=== PATIENT | female | born 1955 | race Caucasian/White ===

== ENCOUNTER 2018-03-28 01:16 | Observation (INO) | payer SELFPAY ==
[2018-03-28] VITALS (24 sets, daily range): BP systolic 81–131; BP diastolic 41–70; PULSE 52–89; RESP 11–20; TEMP 36.4–37.6; O2SAT 91–100; BMI 22.1; BMI 22.4
--- NOTE | 2018-03-28 01:20 | ED.RN ---
RN CALLED FOR EKG, NO OLD EKGS IN MUSE
--- NOTE | 2018-03-28 01:28 | EKG12_ITS ---
Test Reason : CP Blood Pressure : / mmHG Vent. Rate : 055 BPM Atrial Rate : 055 BPM P-R Int : 148 ms QRS Dur : 076 ms QT Int : 414 ms P-R-T Axes : 076 062 056 degrees QTc Int : 396 ms Sinus bradycardia Otherwise normal ECG Confirmed by ABNER BRADLEY, JOY ([id number]), script editor NELI YANG ([id number]) on 03/31/2018 2:40:30 PM Referred By: JD Confirmed By:JOY LEVINE MD
--- NOTE | 2018-03-28 01:28 | RAD_ITS ---
STUDY: X-RAY CHEST REASON FOR EXAM: Female, 62 years old. Chest pain and shortness of breath TECHNIQUE: PA and lateral views of the chest. COMPARISON: None. FINDINGS: Lungs are hyperexpanded. There is mild prominence of interstitial markings throughout both lungs. No confluent airspace opacity. No pleural effusion or pneumothorax. Normal size heart. Normal mediastinum and matteo. Normal visualized pulmonary arteries. Normal visualized aortic arch and descending thoracic aorta. Normal visualized thoracic spine. Normal visualized ribs, clavicles, and shoulders. There is no demonstrated abnormality of the visualized soft tissue structures of the upper abdomen. RAD/Chest PA and Lateral IMPRESSION: Chronic obstructive and interstitial change with no evidence of acute cardiopulmonary disease. Electronically Signed: Brian Reynoso MD at 1:57 EDT Tel , Service support ,
--- NOTE | 2018-03-28 01:30 | ED.DCSUM_ITS ---
- ER Visit Summary Date of Service: 03/28/18 Chief Complaint: [] Chest pain History of Present Illness: The patient is a 62 F complaining of chest pain started 30 minutes ago while knitting at rest. Is a continuous tightness substernal and heaviness. She feels it between her shoulder blades as well. Current severity is moderate. Worsened by nothing. Associated with one episode of emesis and diaphoresis and shortness of breath. She took 2 Aleve earlier 1 hour ago when she has some discomfort in her shoulder. She is never had a history of heart problems. No previous stress test or heart cath. Her cardiovascular risk factors only include smoking. No PE or dissection risk factors. Physical Examination: [] Vital signs reviewed General: Well-nourished well-developed Head: Normocephalic atraumatic Eyes: Pupils equal round and reactive to light extraocular movements intact ENT: TMs clear no hemotympanum no trauma Neck: Nontender full range of motion Cardiovascular: Regular rate rhythm no murmurs normal S1-S2 Respiratory: No distress clear to auscultation bilaterally chest nontender Abdomen: Soft nontender nondistended normal bowel sounds no masses Back: Nontender no CVA tenderness Extremities: Nontender active range of motion ?4 extremities no trauma Skin: Normal color no trauma Neuro alert oriented cranial nerves II through XII intact normal strength sensation reflexes Test Results: [] Emergency Department Course and Treatment: [] EKG shows sinus rhythm at a rate of 55. No STEMI pattern. Positive motion artifact. No T wave inversions or ST depressions. Chest x-ray and lab work obtained. Patient given oral aspirin and sublingual nitroglycerin. Lab work shows nothing acute. Troponin negative. CT of the chest showed pancreatic head calcifications otherwise nothing acute. No PE or dissection. Chest x-ray just showed COPD findings. I did the CT of her chest as she had pain going into her back. I wanted to rule out a dissection. One nitroglycerin dropped her blood pressure to 90/60 but it rebounded back to 107/62. She did not want any thing further for her discomfort. She wanted to avoid narcotics. At this time she will be admitted. I added on a lipase however I have a low suspicion for pancreatitis. She has no pain in the epigastric region. I did this due to the CAT scan findings. Treatment Plan: [] Disposition: [] Impression: [] Chest pain This note was generated with [employer] dictation software. It may contain incorrect words, spelling, and punctuation that were not noted in review of the chart prior to signing ED Disposition - Plan for ED Patient: Chief Complaint: Chest Pain Referrals: NOT,DEFINED [NON-STAFF] -
[2018-03-28] MEDS: Aspirin 81 MG TAB.CHEW 324 MG PO (01:35)
[2018-03-28 01:49] LABS: Absolute Lymphocyte Count 3.72 X10^3/ul (0.83-4.51); Absolute Neutrophil Count 4.7 X10^3/uL (2.0-7.7); Basophil# 0.05 X10^3/uL; Basophil% 0.3 % (0-1); Differential Indicated SCAN CRITERIA MET; Eosinophil# 0.28 X10^3/uL; Hemoglobin 14.2 g/dl (12.0-15.0); Lymphocyte # 3.72 X10^3/ul (4.0); Lymphocyte % 39.6 % (19-41); Mean Corpuscular Hgb 31.6 pg (27.0-32.0); Mean Corpuscular Volume 96.2 fL (81-99); Mean Platelet Vol. 11.1 fl (6.2-12.0); Monocyte% 7.4 % (0-10); Neutrophil # 4.66 X10^3/uL (2.7-7.7); Neutrophil % 49.6 % (47-70); POSITIVE COUNT NO; POSITIVE DIFFERENTIAL NO; POSITIVE MORPHOLOGY YES; Platelet Count 214 K/mm3 (150-450); RBC Distribution Width CV 13.2 % (11.6-14.6); RBC Distribution Width SD 45.4 fl (35.1-43.9); Red Blood Count 4.52 M/mm3 (4.2-5.4); White Blood Count 9.5 K/mm3 (4.4-11.0)
[2018-03-28 01:52] LABS: Anion Gap 5 (5-15); BUN 18 mg/dL (7-18); BUN/Creat Ratio 25.1 RATIO (10-20); Chloride 105 mmol/L (98-107); Creatinine, Serum 0.72 mg/dL (0.55-1.02); EST Glomerular Filtration Rate 87 mL/min (>60); Est Glom Filt Rate - Afr Amer 106 mL/min (>60); Estimated Creatinine Clearance 60.35 ml/min; Glucose 92 mg/dL (74-106); Potassium 4.2 mmol/L (3.5-5.1); Sodium Level 138 mmol/L (136-145)
--- NOTE | 2018-03-28 02:21 | CT_ITS ---
STUDY: CTA CHEST REASON FOR EXAM: Female, 62 years old. Chest pain and shortness of breath RADIATION DOSAGE (If Supplied By Facility): CTDIvol = ( 6.47 ) mGy, DLP = ( 176.52 ) mGycm TECHNIQUE: The examination was performed with the intravenous administration of 75ML ml of Isovue 370 contrast material. Post-processing of the angiographic images was performed, with multiplanar reformation and 3D reconstruction. Individualized dose optimization techniques were used for this CT. COMPARISON: None. FINDINGS: Normal enhancement of the main pulmonary artery and right and left pulmonary arteries. Normal enhancement of the bilateral peripheral pulmonary arteries. There is no demonstrated pulmonary embolism. Thoracic aorta demonstrates no aneurysmal dilatation or dissection. Normal heart and pericardium. Shotty mediastinal and hilar lymph nodes. Normal visualized trachea and bronchi. The lungs are well expanded. Moderate diffuse emphysematous change of the lungs. No confluent airspace infiltrate. Symmetric biapical pleural parenchymal scarring. No pleural effusion or pneumothorax. Normal chest wall structures. Normal osseous structures. Visualized portions of the upper abdomen demonstrate calcific deposition within the head of the pancreas. CT/CTA Chest W/WO Contrast IMPRESSION: 1. No evidence of acute pulmonary embolism. 2. Moderate diffuse atheromatous change of the lungs without evidence of acute airspace infiltrate. 3. Sequelae of chronic pancreatitis in the head of the pancreas. Electronically Signed: Brian Reynoso MD at 3:57 EDT Tel , Service support ,
[2018-03-28 02:27] LABS: Anisocytosis RARE; Macrocytosis RARE; Platelet Estimate ADEQUATE (ADEQ)
[2018-03-28] MEDS: 0.9% Normal Saline 1,000 ML 1000 ML IV (02:52)
--- NOTE | 2018-03-28 04:02 | PCM.HP.STD ---
Problem List (1) Unstable angina pectoris Status: Acute (2) COPD (chronic obstructive pulmonary disease) Status: Acute History of Present Illness Date of Admission: 03/28/18 Chief Complaint: Chest pain The patient is a 62 year old F with a significant history of COPD who presents with continuous substernal chest pain 30 minutes before arrival at emergency department. Her chest pain started when she was resting and knitting. She described her chest pain as stabbing and heavy. Initially her chest pain was 10 out of 10 but at the time of her evaluation her chest pain had decreased to 8 out of 10. When the chest pain started and while at home patient had an episode of vomiting. Associated with her symptoms is profuse diaphoresis. Her chest pain radiated to her inter scapula area. At home she took some Advil which did not give her any real relief. Reportedly patient passed out while at the triage at the emergency department. At emergency department patient received nitroglycerin and aspirin. She reported no relieve with nitroglycerin. However her blood pressure decreased into the 90s after nitroglycerin administration. Upon admission and while in her inpatient room patient had an episode of vomiting which she attributed to IV contrast she had received for CT scan. After this episode of throwing up her chest pain decreased in severity from 8 to a 6. EKG at emergency department showed mild bradycardia without ST changes. Per patient she has not had any chest pain like this before. She had not had any stress test or cardiac cath in the past. Her symptoms started about 7 hours after eating. Past Medical History Medical History: Medical History (Last Updated 03/28/18 @ 05:42 by Oscar Clark MD) COPD (chronic obstructive pulmonary disease) J44.9 Allergies No Known Allergies Allergy (Verified 03/28/18 01:19) Home Medications: Ambulatory Orders Medication Instructions Recorded Albuterol Inhaler [Ventolin Hfa 1 puff INHALATION Q4H PRN PRN 03/28/18 (SP)] Surgical History: no surgical history Lives: Spouse/ Significant Other Smoking Status: Current every day smoker Tobacco Use: Cigarettes Alcohol: None - *Family History Maternal History Items: - - Patient was adopted and she does not know her family history. Paternal History Items: - - Patient was adopted and she does not know her family history. Review of Systems Constitutional: Denies: Chills, Fever, Weight Change HEENT: Denies: Difficulty Hearing, Head Aches, Sinus Congestion, Sinus Drainage, Visual Changes Cardiovascular: Reports: Chest Pain, Syncope. Denies: Edema, Light Headedness Respiratory: Reports: Shortness of Breath. Denies: Hemoptysis, Shortness of breath at rest Gastrointestinal: Reports: Vomiting. Denies: Abdominal Pain, Nausea Genitourinary: Denies: Dysuria, Frequency, Hematuria Musculoskeletal: Denies: Joint Pain, Joint Tenderness Skin: Denies: Rash, Wounds Neurological: Denies: Numbness, Tingling, Focal weakness Psychiatric: Denies: Anxiety, Depression, Homicidal Ideations, Suicidal Ideations Hematologic/ Lymphatic: Denies: Easy Bruising, Easy Bleeding VTE Information - Inpt Only VTE Present on Admission: No VTE Mechan Device Prophylaxis: None VTE Pharm Prophylaxis ordered?: Yes Patient Problems: Active and Suspected Problems (Last Updated 03/28/18 @ 05:42 by Oscar Clark MD) Unstable angina pectoris (Acute) COPD (chronic obstructive pulmonary disease) (Acute) - Physical Exam General: Alert, Oriented x3, Cooperative HEENT: Atraumatic, PERRLA, EOMI, Normocephalic Neck: Supple, No JVD, Negative Carotid Bruits Lungs: Clear to auscultation, Normal air movement Cardiovascular: No murmurs, Bradycardic Abdomen: Bowel Sounds Present, Soft, Non Tender Extremities: No edema, Capillary Refill Less than 3 Seconds Skin: No rashes, No breakdown Musculoskeletal: No Tenderness to Palpation of Joints or Extremities Neurological: Cranial nerves II-XII grossly intact Psych/Mental Status: Normal Affect, Appropriate Vital Signs Temp Pulse Resp BP Pulse Ox 97.8 F 52 L 13 107/62 100 03/28/18 01:17 03/28/18 03:00 03/28/18 03:00 03/28/18 03:00 03/28/18 03:00 Oxygen Flow Rate (L/min) 2 Oxygen Delivery Method Nasal Cannula Weight: 53.1 kg Body Mass Index (BMI) 22.1 Laboratory Tests Past 24 Hrs 03/28/18 03/28/18 01:30 01:30 WBC 9.5 RBC 4.52 Hgb 14.2 Hct 43.0 MCV 96.2 MCH 31.6 MCHC 33.0 RDW 13.2 RDW Differential 45.4 H Plt Count 214 MPV 11.1 Immature Gran % (Auto) 0.400 Neut % (Auto) 49.6 Lymph % (Auto) 39.6 [place] % (Auto) 7.4 Eos % (Auto) 3.0 Baso % (Auto) 0.3 Absolute Neuts (auto) 4.7 Absolute Lymphs (auto) 3.72 Total Counted Not Reportable Diff Path Review May foll Platelet Estimate ADEQUATE Anisocytosis RARE Macrocytosis RARE Sodium 138 Potassium 4.2 Chloride 105 Carbon Dioxide 28.0 Anion Gap 5 BUN 18 Creatinine 0.72 Estim Creat Clear Calc 60.35 Est GFR (MDRD) Af Amer 106 Est GFR (MDRD) Non-Af 87 BUN/Creatinine Ratio 25.1 H Glucose 92 Calcium 9.0 Troponin I < 0.015 Assessment/Plan All Active Problems (Last Updated 03/28/18 @ 05:42 by Oscar Clark MD) Unstable angina pectoris (Acute) COPD (chronic obstructive pulmonary disease) (Acute) The patient is a 62 year old F who was adopted and does not know her family history but with with a significant personal history of COPD; and tobacco abuse; who presents with first time chest pain not relieved with nitroglycerin; vomiting; diaphoresis and syncope consistent with likely unstable angina. Chest pain Admit to a monitored bed on PCU CXR independently reviewed confirms no acute cardiopulmonary disease. It shows hyperinflation consistent with a known history of COPD. EKG independently reviewed confirms sinus bradycardia. Heart score is 4 (history is highly suspicious; age 62 years; 1-2 risk factors). Importantly patient was adopted and she does not know her family history. With a positive family history her heart score will indeed not change. ASA 81 mg p.o. daily Sublingual nitro nitroglycerin not ordered because of hypotension with previous administration. Low-dose morphine ordered for chest pain. 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 We will order chemical stress test with nuclear imaging. Patient is not actively wheezing. Stress test as above in the AM if the cardiac enzymes are negative IV fluid continue since patient received IV dye for CTA Chest. CTA chest did not show PE. Lipid panel ordered. Abnormal CT scan finding. CT scans shows pancreatic calcifications. Lipase pending. DVT prophylaxis ordered. Subcutaneous heparin Code Visit OBSV E&M: [id number] Initial observation care L3
--- NOTE | 2018-03-28 04:38 | EKG12_ITS ---
Test Reason : ADM CP Blood Pressure : / mmHG Vent. Rate : 053 BPM Atrial Rate : 053 BPM P-R Int : 166 ms QRS Dur : 074 ms QT Int : 426 ms P-R-T Axes : 075 077 060 degrees QTc Int : 399 ms Sinus bradycardia Otherwise normal ECG When compared with ECG of 28-MAR-2018 01:19, MANUAL COMPARISON REQUIRED, DATA IS UNCONFIRMED Confirmed by ABNER BRADLEY, JOY ([id number]), editorial intern NELI YANG ([id number]) on 04/02/2018 3:42:37 PM Referred By: VELASQUEZ Confirmed By:JOY LEVINE MD
[2018-03-28 05:16] LABS: Cholesterol 160 mg/dL (200); High Density Lipoprotein 50 mg/dL; Lipase 217 U/L (73-393); Triglycerides 128 mg/dL; Very Low Density Lipoprotein 26 mg/dL (5-40)
[2018-03-28] MEDS: Atorvastatin Calcium 80 MG Tablet PO (05:32)
[2018-03-28] MEDS: Morphine 2 MG/ML Syringe 0.5 MG IV (05:32)
[2018-03-28] MEDS: 0.9% NaCl Peripheral Flush Adult/Peds IV (05:32)
[2018-03-28] MEDS: 0.9% Normal Saline 1,000 ML 100 ML IV (05:32)
[2018-03-28] MEDS: Ondansetron 4 MG/2 ML Vial IV (05:33)
--- NOTE | 2018-03-28 09:29 | EKG12_ITS ---
Test Reason : Blood Pressure : / mmHG Vent. Rate : 056 BPM Atrial Rate : 056 BPM P-R Int : 146 ms QRS Dur : 076 ms QT Int : 434 ms P-R-T Axes : 073 071 062 degrees QTc Int : 418 ms Sinus bradycardia Otherwise normal ECG When compared with ECG of 28-MAR-2018 05:22, MANUAL COMPARISON REQUIRED, DATA IS UNCONFIRMED Confirmed by ABNER BRADLEY, JOY ([id number]), editorial cartoonist NELI YANG ([id number]) on 04/02/2018 3:41:19 PM Referred By: JEN Confirmed By:JOY LEVINE MD
--- NOTE | 2018-03-28 09:44 | ECHOD_ITS ---
Reason For Study: CP Procedure This was a 2D Doppler, Color Flow transthoracic echocardiogram. The study was technically difficult. Exam performed portable in patient room. Left Ventricle Normal LV size. Left ventricular systolic function is normal. The estimated ejection fraction is 60 %. No evidence for diastolic dysfunction. No regional wall motion abnormalities noted. Right Ventricle Normal RV size. Normal systolic function. Atria Normal left atrium. Normal right atrium. Mitral Valve Normal mitral valve. Tricuspid Valve Normal tricuspid valve. Aortic Valve Normal aortic valve. Trisinus/trileaflet aortic valve. Pulmonic Valve Normal pulmonic valve. Great Vessels Normal aortic root. The pulmonary artery is normal size. Normal inferior vena cava. Pericardium/Pleural No pericardial effusion. MMode/2D Measurements & Calculations LVIDd: 3.9 cm IVSd: 0.74 cm LVOT diam: 2.0 cm LVIDs: 2.5 cm LVPWd: 0.72 cm LVOT area: 3.1 cm2 RVDd: 3.1 cm FS: 35.4 % Ao root diam: 2.7 cm LAV(MOD-sp4): 18.4 ml LVAd ap4: 21.5 cm2 LA dimension: 2.5 cm EDV(MOD-sp4): 59.6 ml EDV(sp4-el): 61.8 ml LVAs ap4: 12.3 cm2 ESV(MOD-sp4): 24.9 ml ESV(sp4-el): 25.9 ml EF(MOD-sp4): 58.2 % EF(sp4-el): 58.1 % SV(MOD-sp4): 34.7 ml SV(sp4-el): 35.9 ml LA A4 area: 9.9 cm2 RA A4 area: 9.0 cm2 Time Measurements MV dec time: 0.22 sec Doppler Measurements & Calculations MV E max adair: 76.2 cm/sec Lat Peak E' [place]: 11.3 cm/sec Med Peak E' [place]: 10.4 cm/sec MV A max adair: 66.1 cm/sec E/E' lat: 6.8 E/E' med: 7.3 MV E/A: 1.2 MV V2 max: 93.1 cm/sec MV P1/2t max adair: 92.5 cm/sec Ao V2 max: 147.7 cm/sec MV max P.5 mmHg MV P1/2t: 95.6 msec Ao max P.7 mmHg MV V2 mean: 52.6 cm/sec MV dec slope: 283.4 cm/sec2 Ao V2 mean: 94.8 cm/sec MV mean P.3 mmHg MVA(P1/2t): 2.3 cm2 Ao mean P.2 mmHg MV V2 VTI: 28.8 cm Ao V2 VTI: 31.6 cm MVA(VTI): 2.4 cm2 CABRERA(I,D): 2.2 cm2 CABRERA(V,D): 2.3 cm2 LV V1 max: 113.3 cm/sec SV(LVOT): 70.5 ml PA V2 max: 96.3 cm/sec LV V1 max P.1 mmHg LV V1 mean P.3 mmHg LV V1 mean: 69.9 cm/sec LV V1 VTI: 23.0 cm Interpretation Summary Normal LV size. Left ventricular systolic function is normal. The estimated ejection fraction is 60 %. No evidence for diastolic dysfunction. Structurally normal valves. Ordering Physician: Neptali Molina Performed By: Eric Aponte RCS
[2018-03-28] MEDS: Albuterol 2.5 MG/3 ML VIAL.NEB. INHALATION (09:47)
[2018-03-28 09:51] LABS: Absolute Lymphocyte Count 1.89 X10^3/ul (0.83-4.51); Absolute Neutrophil Count 5.1 X10^3/uL (2.0-7.7); Basophil# 0.03 X10^3/uL; Basophil% 0.4 % (0-1); Eosinophil# 0.24 X10^3/uL; Eosinophils% 3.1 % (0-5); Hematocrit 38.8 % (37-47); Hemoglobin 12.7 g/dl (12.0-15.0); Lymphocyte # 1.89 X10^3/ul (4.0); Lymphocyte % 24.1 % (19-41); Mean Corp Hgb Conc 32.7 g/gl (32-36); Mean Corpuscular Hgb 31.1 pg (27.0-32.0); Mean Corpuscular Volume 95.1 fL (81-99); Monocyte# 0.52 X10^3/uL; Monocyte% 6.6 % (0-10); Neutrophil # 5.14 X10^3/uL (2.7-7.7); Neutrophil % 65.7 % (47-70); POSITIVE COUNT NO; POSITIVE DIFFERENTIAL NO; POSITIVE MORPHOLOGY NO; Platelet Count 255 K/mm3 (150-450); RBC Distribution Width CV 13.1 % (11.6-14.6); RBC Distribution Width SD 45.6 fl (35.1-43.9); Red Blood Count 4.08 M/mm3 (4.2-5.4); White Blood Count 7.8 K/mm3 (4.4-11.0)
--- NOTE | 2018-03-28 09:52 | PCM.PN.HOSP ---
Patient Problems: Active and Suspected Problems (Last Updated 03/28/18 @ 05:42 by Oscar Clark MD) Unstable angina pectoris (Acute) COPD (chronic obstructive pulmonary disease) (Acute) Subjective: Nurse called for patient having chest pain and hypotension. 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 Vitals/I&O's: Vital Signs Temp Pulse Resp BP Pulse Ox 97.6 F L 68 19 H 88/49 L 92 03/28/18 09:20 03/28/18 09:20 03/28/18 09:20 03/28/18 09:20 03/28/18 09:20 Oxygen Flow Rate (L/min) 2 Oxygen Delivery Method Room Air Weight: 119 lb 0.794 oz Body Mass Index (BMI) 22.4 Intake and Output for Last 24 Hours 03/26/18 03/27/18 03/28/18 23:59 23:59 23:59 Intake Total 1000 / 1000 Balance 1000 / 1000 General: Alert, Oriented x3, Cooperative, - - Thin built HEENT: Atraumatic, PERRLA, EOMI, Normocephalic Neck: Supple, No JVD, Negative Carotid Bruits Lungs: No rhonchi, No wheeze, Diminished Cardiovascular: Regular rate, Regular Rhythm, Normal S1, Normal S2, No murmurs Abdomen: Bowel Sounds Present, Soft, Non Tender, Non-Distended Extremities: No edema, Capillary Refill Less than 3 Seconds Skin: No rashes, No breakdown Musculoskeletal: No Tenderness to Palpation of Joints or Extremities Neurological: Cranial nerves II-XII grossly intact Psych/Mental Status: Normal Affect, Appropriate Laboratory Results 03/28/18 01:30: WBC 9.5, RBC 4.52, Hgb 14.2, Hct 43.0, MCV 96.2, MCH 31.6, MCHC 33.0, RDW 13.2, RDW Differential 45.4 H, Plt Count 214, MPV 11.1, Immature Gran % (Auto) 0.400, Neut % (Auto) 49.6, Lymph % (Auto) 39.6, [place] % (Auto) 7.4, Eos % (Auto) 3.0, Baso % (Auto) 0.3, Absolute Neuts (auto) 4.7, Absolute Lymphs (auto) 3.72, Total Counted Not Reportable, Diff Path Review October, Platelet Estimate ADEQUATE, Anisocytosis RARE, Macrocytosis RARE 03/28/18 01:30: Sodium 138, Potassium 4.2, Chloride 105, Carbon Dioxide 28.0, Anion Gap 5, BUN 18, Creatinine 0.72, Estim Creat Clear Calc 60.35, Est GFR (MDRD) Af Amer 106, Est GFR (MDRD) Non-Af 87, BUN/Creatinine Ratio 25.1 H, Glucose 92, Calcium 9.0, Troponin I < 0.015 03/28/18 04:04: Triglycerides 128, Cholesterol 160, LDL Cholesterol 84, VLDL Cholesterol 26, HDL Cholesterol 50, Lipase 217 03/28/18 05:02: Troponin I < 0.015 03/28/18 08:10: Troponin I < 0.015 03/28/18 08:10: Sodium Pending, Potassium Pending, Chloride Pending, Carbon Dioxide Pending, Anion Gap Pending, BUN Pending, Creatinine Pending, Est GFR (MDRD) Af Amer Pending, Est GFR (MDRD) Non-Af Pending, BUN/Creatinine Ratio Pending, Glucose Pending, Calcium Pending, Magnesium Pending 03/28/18 08:10: WBC 7.8, RBC 4.08 L, Hgb 12.7, Hct 38.8, MCV 95.1, MCH 31.1, MCHC 32.7, RDW 13.1, RDW Differential 45.6 H, Plt Count 255, MPV 10.0, Immature Gran % (Auto) 0.100, Neut % (Auto) 65.7, Lymph % (Auto) 24.1, [place] % (Auto) 6.6, Eos % (Auto) 3.1, Baso % (Auto) 0.4, Absolute Neuts (auto) 5.1, Absolute Lymphs (auto) 1.89, Total Counted Not Reportable Current Medications Albuterol Sulfate (Ventolin Aerosols) 2.5 mg INHALATION Q4H PRN PRN PRN Reason: WHEEZING Last Admin: 03/28/18 09:47 Dose: 2.5 mg Aspirin (Ecotrin) 81 mg PO DAILY@0800 KATHY Atorvastatin Calcium (Lipitor) 80 mg PO QHS ON LICENSE OF [facility] Last Admin: 03/28/18 05:32 Dose: 80 mg Carvedilol (Coreg) 3.125 mg PO BID ON LICENSE OF [facility] Heparin Sodium (Porcine) (Heparin Na) 5,000 unit SC Q8 ON LICENSE OF [facility] Last Admin: 03/28/18 06:16 Dose: Not Given Sodium Chloride () 1,000 mls @ 100 mls/hr IV .Q10H KATHY Stop: 03/28/18 14:37 Last Admin: 03/28/18 05:32 Dose: 100 mls/hr Sodium Chloride () 1,000 mls @ 999 mls/hr IV .Q1H1M ONE Stop: 03/28/18 10:48 Influenza Virus Vaccine Quadrival (Fluarix/Fluzone) 0.5 ml IM .ONCE ONE Stop: 03/28/18 10:01 Magnesium Hydroxide (Milk Of Magnesia) 30 ml PO DAILY PRN PRN Reason: Constipation Morphine Sulfate () 0.5 mg IV Q1H PRN PRN PRN Reason: PAIN Last Admin: 03/28/18 05:32 Dose: 0.5 mg Ondansetron HCl (Zofran) 4 mg IV Q6H PRN PRN PRN Reason: n/v Last Admin: 03/28/18 05:33 Dose: 4 mg Sodium Chloride () 5 - 30 ml IV UD PRN PRN Reason: SALINE FLUSH Last Admin: 03/28/18 05:32 Dose: 10 ml Medical Necessity - Tobacco Use Smoking Status: Current every day smoker Tobacco Use: Cigarettes Assessment/Plan All Active Problems (Last Updated 03/28/18 @ 05:42 by Oscar Clark MD) Unstable angina pectoris (Acute) COPD (chronic obstructive pulmonary disease) (Acute) 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 Prior history of chest pain/discomfort or cardiac evaluation. Patient is adopted so does not know her family history. Patient also had collapse while moving to ER but was held before fall and laid down. Patient also dropped blood pressure in ED after nitro sublingual. EKG reviewed. All EKGs show sinus bradycardia, no significant ST-T changes suggestive of ischemia. Troponins are normal. Stress test was canceled. IV fluid normal saline 1 L bolus ordered. 2D echo ordered. I called Dr. herrera and requested for consult for further evaluation and management.
[2018-03-28 09:57] LABS: Anion Gap 7 (5-15); BUN 12 mg/dL (7-18); BUN/Creat Ratio 24.1 RATIO (10-20); Chloride 109 mmol/L (98-107); EST Glomerular Filtration Rate 133 mL/min (>60); Est Glom Filt Rate - Afr Amer 161 mL/min (>60); Glucose 86 mg/dL (74-106); Magnesium 1.8 mg/dL (1.6-2.6); Potassium 4.3 mmol/L (3.5-5.1); Sodium Level 142 mmol/L (136-145)
--- NOTE | 2018-03-28 09:59 | PN_ITS ---
Patient Problems: Active and Suspected Problems (Last Updated 03/28/18 @ 05:42 by Oscar Clark MD) Unstable angina pectoris (Acute) COPD (chronic obstructive pulmonary disease) (Acute) Subjective: Nurse called for patient having chest pain and hypotension. 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 Vitals/I&O's: Vital Signs Temp Pulse Resp BP Pulse Ox 97.6 F L 68 19 H 88/49 L 92 03/28/18 09:20 03/28/18 09:20 03/28/18 09:20 03/28/18 09:20 03/28/18 09:20 Oxygen Flow Rate (L/min) 2 Oxygen Delivery Method Room Air Weight: 119 lb 0.794 oz Body Mass Index (BMI) 22.4 Intake and Output for Last 24 Hours 03/26/18 03/27/18 03/28/18 23:59 23:59 23:59 Intake Total 1000 / 1000 Balance 1000 / 1000 General: Alert, Oriented x3, Cooperative, - - Thin built HEENT: Atraumatic, PERRLA, EOMI, Normocephalic Neck: Supple, No JVD, Negative Carotid Bruits Lungs: No rhonchi, No wheeze, Diminished Cardiovascular: Regular rate, Regular Rhythm, Normal S1, Normal S2, No murmurs Abdomen: Bowel Sounds Present, Soft, Non Tender, Non-Distended Extremities: No edema, Capillary Refill Less than 3 Seconds Skin: No rashes, No breakdown Musculoskeletal: No Tenderness to Palpation of Joints or Extremities Neurological: Cranial nerves II-XII grossly intact Psych/Mental Status: Normal Affect, Appropriate Laboratory Results 03/28/18 01:30: WBC 9.5, RBC 4.52, Hgb 14.2, Hct 43.0, MCV 96.2, MCH 31.6, MCHC 33.0, RDW 13.2, RDW Differential 45.4 H, Plt Count 214, MPV 11.1, Immature Gran % (Auto) 0.400, Neut % (Auto) 49.6, Lymph % (Auto) 39.6, [place] % (Auto) 7.4, Eos % (Auto) 3.0, Baso % (Auto) 0.3, Absolute Neuts (auto) 4.7, Absolute Lymphs (auto) 3.72, Total Counted Not Reportable, Diff Path Review October, Platelet Estimate ADEQUATE, Anisocytosis RARE, Macrocytosis RARE 03/28/18 01:30: Sodium 138, Potassium 4.2, Chloride 105, Carbon Dioxide 28.0, Anion Gap 5, BUN 18, Creatinine 0.72, Estim Creat Clear Calc 60.35, Est GFR (MDRD) Af Amer 106, Est GFR (MDRD) Non-Af 87, BUN/Creatinine Ratio 25.1 H, Glucose 92, Calcium 9.0, Troponin I < 0.015 03/28/18 04:04: Triglycerides 128, Cholesterol 160, LDL Cholesterol 84, VLDL Cholesterol 26, HDL Cholesterol 50, Lipase 217 03/28/18 05:02: Troponin I < 0.015 03/28/18 08:10: Troponin I < 0.015 03/28/18 08:10: Sodium Pending, Potassium Pending, Chloride Pending, Carbon Dioxide Pending, Anion Gap Pending, BUN Pending, Creatinine Pending, Est GFR (MDRD) Af Amer Pending, Est GFR (MDRD) Non-Af Pending, BUN/Creatinine Ratio Pending, Glucose Pending, Calcium Pending, Magnesium Pending 03/28/18 08:10: WBC 7.8, RBC 4.08 L, Hgb 12.7, Hct 38.8, MCV 95.1, MCH 31.1, MCHC 32.7, RDW 13.1, RDW Differential 45.6 H, Plt Count 255, MPV 10.0, Immature Gran % (Auto) 0.100, Neut % (Auto) 65.7, Lymph % (Auto) 24.1, [place] % (Auto) 6.6, Eos % (Auto) 3.1, Baso % (Auto) 0.4, Absolute Neuts (auto) 5.1, Absolute Lymphs (auto) 1.89, Total Counted Not Reportable Current Medications Albuterol Sulfate (Ventolin Aerosols) 2.5 mg INHALATION Q4H PRN PRN PRN Reason: WHEEZING Last Admin: 03/28/18 09:47 Dose: 2.5 mg Aspirin (Ecotrin) 81 mg PO DAILY@0800 KATHY Atorvastatin Calcium (Lipitor) 80 mg PO QHS [facility] Last Admin: 03/28/18 05:32 Dose: 80 mg Carvedilol (Coreg) 3.125 mg PO BID [facility] Heparin Sodium (Porcine) (Heparin Na) 5,000 unit SC Q8 [facility] Last Admin: 03/28/18 06:16 Dose: Not Given Sodium Chloride () 1,000 mls @ 100 mls/hr IV .Q10H KATHY Stop: 03/28/18 14:37 Last Admin: 03/28/18 05:32 Dose: 100 mls/hr Sodium Chloride () 1,000 mls @ 999 mls/hr IV .Q1H1M ONE Stop: 03/28/18 10:48 Influenza Virus Vaccine Quadrival (Fluarix/Fluzone) 0.5 ml IM .ONCE ONE Stop: 03/28/18 10:01 Magnesium Hydroxide (Milk Of Magnesia) 30 ml PO DAILY PRN PRN Reason: Constipation Morphine Sulfate () 0.5 mg IV Q1H PRN PRN PRN Reason: PAIN Last Admin: 03/28/18 05:32 Dose: 0.5 mg Ondansetron HCl (Zofran) 4 mg IV Q6H PRN PRN PRN Reason: n/v Last Admin: 03/28/18 05:33 Dose: 4 mg Sodium Chloride () 5 - 30 ml IV UD PRN PRN Reason: SALINE FLUSH Last Admin: 03/28/18 05:32 Dose: 10 ml Medical Necessity - Tobacco Use Smoking Status: Current every day smoker Tobacco Use: Cigarettes Assessment/Plan All Active Problems (Last Updated 03/28/18 @ 05:42 by Oscar Clark MD) Unstable angina pectoris (Acute) COPD (chronic obstructive pulmonary disease) (Acute) 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 Prior history of chest pain/discomfort or cardiac evaluation. Patient is adopted so does not know her family history. Patient also had collapse while moving to ER but was held before fall and laid down. Patient also dropped blood pressure in ED after nitro sublingual. EKG reviewed. All EKGs show sinus bradycardia, no significant ST-T changes suggestive of ischemia. Troponins are normal. Stress test was canceled. IV fluid normal saline 1 L bolus ordered. 2D echo ordered. I called Dr. herrera and requested for consult for further evaluation and management.
--- NOTE | 2018-03-28 10:40 | CASEMGMT ---
SW met w/pt in room as pt is self pay. Pt states she did speak w/the financial department this morning, she completed a Medicaid application. SW gave pt information [employer], [employer] and [employer]. SW also spoke w/pt about smoking, pt states she is feeling better since she had a breathing treatment this morning. She states she still smokes and knows she should not. Pt states she quit for 9 months, but then her and she started smoking again from the stress. SW inquired if she is interested in counseling. Pt states not really, does not think it would help. Pt states she used to go to with her to support him, but did not find it very helpful. SW asked if she has ever called the [place] [employer] line, pt has and has used the patch in the past. She also tried Chantix, but it gave her nightmares. SW offered support and encouragement to pt. No further needs anticipated, pt home at discharge. 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
--- NOTE | 2018-03-28 10:56 | PCM.CONS.C ---
Reason for Consult Date of Consultation: 03/28/18 Reason for Consultation: Chest pain. History of Present Illness: The patient is a 62 year old F with no previous cardiac history who presented to the emergency room complaining of chest discomfort. She says she was asleep when she started having this chest discomfort initially sharp and then it felt like an elephant sitting on her chest and going to her back. She presented to the emergency room she was given sublingual glycerin and also underwent a CAT scan of the chest which did not demonstrate any evidence of aortic dissection or aortic pathology. She has continued to have the chest discomfort despite normal cardiac troponin enzymes. She denies any dizziness or diaphoresis she did have an episode of near syncope when she was in the emergency room. This morning she was noted to be hypotensive on the telemetry floor and continued to complain of chest discomfort prompting a cardiology consultation. She currently says that the pain is much improved. [] Past Medical History Allergies/Adverse Reactions: Allergies No Known Allergies Allergy (Verified 03/28/18 01:19) Home Medications: Ambulatory Orders Medication Instructions Recorded Albuterol Inhaler [Ventolin Hfa 1 puff INHALATION Q4H PRN PRN 03/28/18 (SP)] Surgical History: no surgical history - *Family History Maternal History Items: - - Patient was adopted and she does not know her family history. Paternal History Items: - - Patient was adopted and she does not know her family history. Lives: Spouse/ Significant Other Smoking Status: Current every day smoker Tobacco Use: Cigarettes Alcohol: None Drugs: None Review of Systems - Review of Systems General: Denies: Fever, Night Sweats, Fatigue Cardiovascular: Reports: Chest Discomfort, Chest Discomfort at Rest. Denies: Shortness of Breath, Orthopnea, PND, Peripheral Edema, Palpitations, Lightheadedness, Dizziness, Near Syncope, Syncope Respiratory: Denies: Cough, Sputum Production, Hemoptysis Gastrointestinal: Denies: Hematemesis, Hematochezia, Melena Genitourinary: Denies: Dysuria, Hematuria Skin: Denies: Rash Subjectve: Pleasant lady in no apparent distress at this time Objective: Vital Signs Temp Pulse Resp BP Pulse Ox 97.6 F L 68 19 H 88/49 L 92 03/28/18 09:20 03/28/18 09:20 03/28/18 09:20 03/28/18 09:20 03/28/18 09:20 Oxygen Flow Rate (L/min) 2 Oxygen Delivery Method Room Air Weight: 119 lb 0.794 oz Body Mass Index (BMI) 22.4 Intake and Output for Last 24 Hours 03/26/18 03/27/18 03/28/18 23:59 23:59 23:59 Intake Total 1000 / 1000 Balance 1000 / 1000 General: Awake, Alert, Oriented x 3 HEENT: PERRL, EOMI, Sclera Non Icteric Neck: Supple, Good ROM, No Lymph Node Enlargement Lungs: Clear to auscultation Cardiovascular: Regular Rhythm, Normal S1, Normal S2, No Murmurs, No Rubs, No Gallops Vascular: No Carotid Bruits, Normal Femoral Pulses, Normal Radial Pulses, Normal Dorsalis Pedal Pulse, Normal Posterior Tibial Pulses Abdomen: Bowel Sounds Present, Soft, Non Tender, No HSM, No Organomegaly Extremities: No Cyanosis, No Clubbing, No edema Neurological: No Focal Motor or Sensory Deficit 03/28/18 01:30: WBC 9.5, RBC 4.52, Hgb 14.2, Hct 43.0, MCV 96.2, MCH 31.6, MCHC 33.0, RDW 13.2, RDW Differential 45.4 H, Plt Count 214, MPV 11.1, Immature Gran % (Auto) 0.400, Neut % (Auto) 49.6, Lymph % (Auto) 39.6, Bell % (Auto) 7.4, Eos % (Auto) 3.0, Baso % (Auto) 0.3, Absolute Neuts (auto) 4.7, Total Counted Not Reportable 03/28/18 01:30: Sodium 138, Potassium 4.2, Chloride 105, Carbon Dioxide 28.0, Anion Gap 5, BUN 18, Creatinine 0.72, Est GFR (MDRD) Af Amer 106, Est GFR (MDRD) Non-Af 87, BUN/Creatinine Ratio 25.1 H, Glucose 92, Calcium 9.0, Troponin I < 0.015 03/28/18 04:04: Triglycerides 128, Cholesterol 160, LDL Cholesterol 84, VLDL Cholesterol 26, HDL Cholesterol 50 03/28/18 05:02: Troponin I < 0.015 03/28/18 08:10: Troponin I < 0.015 03/28/18 08:10: Sodium 142, Potassium 4.3, Chloride 109 H, Carbon Dioxide 26.0, Anion Gap 7, BUN 12, Creatinine 0.50 L, Est GFR (MDRD) Af Amer 161, Est GFR (MDRD) Non-Af 133, BUN/Creatinine Ratio 24.1 H, Glucose 86, Calcium 8.0 L, Magnesium 1.8 03/28/18 08:10: WBC 7.8, RBC 4.08 L, Hgb 12.7, Hct 38.8, MCV 95.1, MCH 31.1, MCHC 32.7, RDW 13.1, RDW Differential 45.6 H, Plt Count 255, MPV 10.0, Immature Gran % (Auto) 0.100, Neut % (Auto) 65.7, Lymph % (Auto) 24.1, Bell % (Auto) 6.6, Eos % (Auto) 3.1, Baso % (Auto) 0.4, Absolute Neuts (auto) 5.1, Total Counted Not Reportable Rhythm: EKG: ECHO: Stress Test: Cardiac Cath: PCI: CT Surgery: Holter monitor: EPS: PPM: CXR: Chest CT Scan: Assessment/Plan 1. Chest pain. Patient presents with chest pain with some features which are atypical for coronary artery disease. Her electrocardiogram demonstrates normal sinus rhythm with no acute changes, cardiac troponin enzymes are normal and CAT scan of her chest is normal. She however continues to complain of significant chest discomfort and with her hypotension there is a concern that this could be primary cardiac or coronary in etiology. After discussion with her it was felt that she should undergo a cardiac catheterization rather than stress testing. The risk benefits alternatives have been explained to her she understands and agrees to proceed. Depending on the findings further recommendations will be made. Thank you for allowing me to participate in the care of your patient. Please don't hesitate to call if any issues arise Addendum. Cardiac catheterization today performed demonstrated the following: Normal left main coronary artery. Left anterior descending artery with no significant disease. Left circumflex artery with mild disease. Dominant right coronary artery with mid segment 40-50% stenosis. Preserved left ventricular ejection fraction. Based on the above angiographic findings I would recommend that the patient to be discharged for outpatient follow-up.
--- NOTE | 2018-03-28 11:00 | CON.PCM_ITS ---
Reason for Consult Date of Consultation: 03/28/18 Reason for Consultation: Chest pain. History of Present Illness: The patient is a 62 year old F with no previous cardiac history who presented to the emergency room complaining of chest discomfort. She says she was asleep when she started having this chest discomfort initially sharp and then it felt like an elephant sitting on her chest and going to her back. She presented to the emergency room she was given sublingual glycerin and also underwent a CAT scan of the chest which did not demonstrate any evidence of aortic dissection or aortic pathology. She has continued to have the chest discomfort despite normal cardiac troponin enzymes. She denies any dizziness or diaphoresis she did have an episode of near syncope when she was in the emergency room. This morning she was noted to be hypotensive on the telemetry floor and continued to complain of chest discomfort prompting a cardiology consultation. She currently says that the pain is much improved. [] Past Medical History Allergies/Adverse Reactions: Allergies No Known Allergies Allergy (Verified 03/28/18 01:19) Home Medications: Ambulatory Orders Medication Instructions Recorded Albuterol Inhaler [Ventolin Hfa 1 puff INHALATION Q4H PRN PRN 03/28/18 (SP)] Surgical History: no surgical history - *Family History Maternal History Items: - - Patient was adopted and she does not know her family history. Paternal History Items: - - Patient was adopted and she does not know her family history. Lives: Spouse/ Significant Other Smoking Status: Current every day smoker Tobacco Use: Cigarettes Alcohol: None Drugs: None Review of Systems - Review of Systems General: Denies: Fever, Night Sweats, Fatigue Cardiovascular: Reports: Chest Discomfort, Chest Discomfort at Rest. Denies: Shortness of Breath, Orthopnea, PND, Peripheral Edema, Palpitations, Lightheadedness, Dizziness, Near Syncope, Syncope Respiratory: Denies: Cough, Sputum Production, Hemoptysis Gastrointestinal: Denies: Hematemesis, Hematochezia, Melena Genitourinary: Denies: Dysuria, Hematuria Skin: Denies: Rash Subjectve: Pleasant lady in no apparent distress at this time Objective: Vital Signs Temp Pulse Resp BP Pulse Ox 97.6 F L 68 19 H 88/49 L 92 03/28/18 09:20 03/28/18 09:20 03/28/18 09:20 03/28/18 09:20 03/28/18 09:20 Oxygen Flow Rate (L/min) 2 Oxygen Delivery Method Room Air Weight: 119 lb 0.794 oz Body Mass Index (BMI) 22.4 Intake and Output for Last 24 Hours 03/26/18 03/27/18 03/28/18 23:59 23:59 23:59 Intake Total 1000 / 1000 Balance 1000 / 1000 General: Awake, Alert, Oriented x 3 HEENT: PERRL, EOMI, Sclera Non Icteric Neck: Supple, Good ROM, No Lymph Node Enlargement Lungs: Clear to auscultation Cardiovascular: Regular Rhythm, Normal S1, Normal S2, No Murmurs, No Rubs, No Gallops Vascular: No Carotid Bruits, Normal Femoral Pulses, Normal Radial Pulses, Normal Dorsalis Pedal Pulse, Normal Posterior Tibial Pulses Abdomen: Bowel Sounds Present, Soft, Non Tender, No HSM, No Organomegaly Extremities: No Cyanosis, No Clubbing, No edema Neurological: No Focal Motor or Sensory Deficit 03/28/18 01:30: WBC 9.5, RBC 4.52, Hgb 14.2, Hct 43.0, MCV 96.2, MCH 31.6, MCHC 33.0, RDW 13.2, RDW Differential 45.4 H, Plt Count 214, MPV 11.1, Immature Gran % (Auto) 0.400, Neut % (Auto) 49.6, Lymph % (Auto) 39.6, [place] % (Auto) 7.4, Eos % (Auto) 3.0, Baso % (Auto) 0.3, Absolute Neuts (auto) 4.7, Total Counted Not Reportable 03/28/18 01:30: Sodium 138, Potassium 4.2, Chloride 105, Carbon Dioxide 28.0, Anion Gap 5, BUN 18, Creatinine 0.72, Est GFR (MDRD) Af Amer 106, Est GFR (MDRD) Non-Af 87, BUN/Creatinine Ratio 25.1 H, Glucose 92, Calcium 9.0, Troponin I < 0.015 03/28/18 04:04: Triglycerides 128, Cholesterol 160, LDL Cholesterol 84, VLDL Cholesterol 26, HDL Cholesterol 50 03/28/18 05:02: Troponin I < 0.015 03/28/18 08:10: Troponin I < 0.015 03/28/18 08:10: Sodium 142, Potassium 4.3, Chloride 109 H, Carbon Dioxide 26.0, Anion Gap 7, BUN 12, Creatinine 0.50 L, Est GFR (MDRD) Af Amer 161, Est GFR (MDRD) Non-Af 133, BUN/Creatinine Ratio 24.1 H, Glucose 86, Calcium 8.0 L, Magnesium 1.8 03/28/18 08:10: WBC 7.8, RBC 4.08 L, Hgb 12.7, Hct 38.8, MCV 95.1, MCH 31.1, MCHC 32.7, RDW 13.1, RDW Differential 45.6 H, Plt Count 255, MPV 10.0, Immature Gran % (Auto) 0.100, Neut % (Auto) 65.7, Lymph % (Auto) 24.1, [place] % (Auto) 6.6, Eos % (Auto) 3.1, Baso % (Auto) 0.4, Absolute Neuts (auto) 5.1, Total Counted Not Reportable Rhythm: EKG: ECHO: Stress Test: Cardiac Cath: PCI: CT Surgery: Holter monitor: EPS: PPM: CXR: Chest CT Scan: Assessment/Plan * 1. Chest pain. * * Patient presents with chest pain with some features which are atypical for coronary artery disease. Her electrocardiogram demonstrates normal sinus rhythm with no acute changes, cardiac troponin enzymes are normal and CAT scan of her chest is normal. She however continues to complain of significant chest discomfort and with her hypotension there is a concern that this could be primary cardiac or coronary in etiology. After discussion with her it was felt that she should undergo a cardiac catheterization rather than stress testing. The risk benefits alternatives have been explained to her she unders tands and agrees to proceed. Depending on the findings further recommendations will be made. * * Thank you for allowing me to participate in the care of your patient. Please don't hesitate to call if any issues arise * * * Addendum. Cardiac catheterization today performed demonstrated the following: Normal left main coronary artery. Left anterior descending artery with no significant disease. Left circumflex artery with mild disease. Dominant right coronary artery with mid segment 40-50% stenosis. Preserved left ventricular ejection fraction. Based on the above angiographic findings I would recommend that the patient to be discharged for outpatient follow-up.
[2018-03-28] MEDS: 0.9% Normal Saline 1,000 ML 999 ML IV (11:02)
[2018-03-28] MEDS: Clopidogrel Bisulfate 300 MG Tablet PO (11:38)
--- NOTE | 2018-03-28 15:07 | CHAPLAIN ---
Type of Pastoral Visit _x__ Initial Visit ___ Follow-up Visit ___ On-call Visit ___ General Patient Visit ___ Spiritual Assessment ___ Family Conference ___ Bereavement ___ Rapid Response ___ Code Blue ___ Other (describe below) Pastoral Care Referral From _x__ Patient ___ Family ___ Nurse ___ Physician ___ Client Resolution Specialist ___ Office Messenger Helper ___ Other (describe below) Sacrament/Intervention _x__ Active listening ___ Anointing ___ Pentecostal ___ Bereavement ___ Communion ___ Chloé exploration ___ ___ Life review _x__ Prayer ___ Reconciliation ___ Sacrament of Sick _x__ Supportive presence ___ Wedding ___ Other (describe below) Pastoral Comments patient came in through the night into ED; pt keeps talking about having to wait before eating and admits to getting crabby with people because of hungry feelings; pt is waiting to go to [employer] and does want prayer support
[2018-03-28 15:09] LABS: Pathologist Review Reviewed
--- NOTE | 2018-03-28 16:16 | DCINST_ITS ---
- Discharge Diagnoses Current Active Problems: Current Active and Chronic Problems (Last Updated 03/28/18 @ 05:42 by Oscar Clark MD) Unstable angina pectoris (Acute) COPD (chronic obstructive pulmonary disease) (Acute) You will use the following diet at home:: Cardiac Discharge Activity: May not drive while taking narcotic pain medications. Call your doctor if you observe: Fever of 101 or Higher, Shortness of breath, Chest pain, Increased palpitations (irregular heartbeat), Calf discomfort Allergies/Adverse Reactions: Allergies No Known Allergies Allergy (Verified 03/28/18 01:19) Medications to take at Discharge Albuterol Inhaler [Ventolin Hfa] 1 puff INHALATION Q4H PRN PRN 03/28/18 Atorvastatin Calcium [Lipitor] 20 mg PO QHS #30 tab 03/28/18 Budesonide/Formoterol 80-4.5 [Symbicort 80-4.5 Mcg Inhaler] 2 puff INHALATION BID #1 inhaler 03/28/18 The following prescriptions were given: Atorvastatin Calcium [Lipitor] 20 mg PO QHS #30 tab Budesonide/Formoterol 80-4.5 [Symbicort 80-4.5 Mcg Inhaler] 2 puff INHALATION BID #1 inhaler Primary Care Physician: NOT,DEFINED [NON-STAFF] - Please follow up with your Primary Care Physician in: IN 2 WEEKS Test Results: Test results from this visit will be discussed in further detail at your follow- up appointment, if applicable. Please Follow Up With: Rony Gardner MD When: in 4 weeks for advanced COPD
--- NOTE | 2018-03-28 16:16 | PCM.DC.SUM ---
Discharge Date and Diagnosis - Problem List Patient Problems: Active and Suspected Problems (Last Updated 03/28/18 @ 05:42 by Oscar Clark MD) Unstable angina pectoris (Acute) COPD (chronic obstructive pulmonary disease) (Acute) Date of Admission: 03/28/18 Date of Discharge: 03/28/18 - Primary Discharge Diagnosis Active and Suspected Problems (Last Updated 03/28/18 @ 05:42 by Oscar Clark MD) Unstable angina pectoris (Acute) COPD (chronic obstructive pulmonary disease) (Acute) Atypical chest pain with mild coronary artery disease in the RCA Hospital Course and Treatment Imaging Results: 03/28/18 09:44 Echo Complete [ECHO] Routine Summary of Care Provided: The patient is a 62 year old F was admitted facility practice specialist with chest discomfort/pain started at 11 PM last night, at rest with radiation to interscapular region associated with mild shortness of breath on top of chronic COPD shortness of breath, diaphoresis and hypotension. No Prior history of chest pain/discomfort or cardiac evaluation. Patient is adopted so does not know her family history. Patient also had collapse/dizziness but no syncope while moving to ER bed but was held before fall and laid down. Patient also dropped blood pressure in ED after nitro sublingual. Patient was admitted on telemetry. EKG reviewed. All EKGs show sinus bradycardia, no significant ST-T changes suggestive of ischemia. Troponins are normal. IV fluid normal saline 1 L bolus ordered. 2D echo ordered and reported as normal LV size and systolic function, EF 60%. No evidence of diastolic dysfunction. No regional wall motion abnormalities. Normal right and left atria. Normal right ventricle size and systolic function. No significant valvular pathology. I called Dr. herrera and requested for consult for further evaluation and management. With concern of persistent chest discomfort and hypotension, patient underwent cardiac cath. Cardiac cath reported as normal left main coronary artery, LAD with no significant disease, left circumflex with mild disease. Dominant RCA with mid segment 40-50% stenosis. Preserved EF. Lipid profile shows total cholesterol 160, LDL 84, HDL 50 within normal limit. Discussed with Dr. herrera and he suggested baby aspirin and atorvastatin 20 mg daily. Patient has significant COPD and continues to be smoking. She has nicotine patch at home. Patient was advised tapering dose of nicotine patches starting with 21 mg and taper down in about 6 weeks. Prescription given for albuterol and Symbicort inhaler. Follow-up with pulmonary clinic, Dr. Gardner in 4 weeks. Discharge medication reconciliation done. Follow-up instructions completed. Prescription given for aspirin and atorvastatin. Discharge Activity: May not drive while taking narcotic pain medications. Call your doctor if you observe: Fever of 101 or Higher, Shortness of breath, Chest pain, Increased palpitations (irregular heartbeat), Calf discomfort Home Medications: Medications to take at Discharge Albuterol Inhaler [Ventolin Hfa] 2 puff INHALATION Q4H PRN PRN #1 inhaler 03/28/18 Aspirin E.C. [Ecotrin] 81 mg PO DAILY@0800 #30 tab 03/28/18 Atorvastatin Calcium [Lipitor] 20 mg PO QHS #30 tab 03/28/18 Budesonide/Formoterol 80-4.5 [Symbicort 80-4.5 Mcg Inhaler] 2 puff INHALATION BID #1 inhaler 03/28/18 Following Prescrptions Were Given to Patient: Albuterol Inhaler [Ventolin Hfa] 2 puff INHALATION Q4H PRN PRN #1 inhaler PRN Reason: Wheezing Aspirin E.C. [Ecotrin] 81 mg PO DAILY@0800 #30 tab Atorvastatin Calcium [Lipitor] 20 mg PO QHS #30 tab Budesonide/Formoterol 80-4.5 [Symbicort 80-4.5 Mcg Inhaler] 2 puff INHALATION BID #1 inhaler Primary Care Physician: NOT,DEFINED [NON-STAFF] - Please follow up with your Primary Care Physician in: IN 2 WEEKS Please Follow Up With: Rony Gardner MD When: in 4 weeks for advanced COPD Medical Necessity - Tobacco Use Smoking Status: Current every day smoker Tobacco Use: Cigarettes Meaningful Use Info Meaningful Use Diagnoses (Choose all that apply): None applicable Code Visit OBSV E&M: 57807 Observation care discharge
--- NOTE | 2018-03-28 17:42 | CL.D_ITS ---
Patient Name: DEMETRIO MUSA Study Date: 03/28/2018 Performing: Neptali Molina MD Ht: 61.02 inches 155 cm : 1955 Wt: 119.05 lbs 54 kg Age: 62 Gender: female BSA: 1.52 PROCEDURE(S) PERFORMED CZ05-MYL/COR/LV CLINICAL PROFILE AND INDICATIONS Indications: Suspected CAD Heart Failure: None Stress/Imaging Stress/Image Study Performed: No CAD Presentations: Symptom unlikely to be ischemic. CONCLUSIONS Mild nonobstructive coronary artery disease with preserved left ventricular ejection fraction RECOMMENDATIONS Medical therapy DESCRIPTION OF PROCEDURE The patient arrived to the procedure lab. The risks and benefits of the procedure as well as a full d escription of our services here and current unavailability of surgical backup were fully explained to the patient and/or their significant other prior to the catheterization. The Timeout was completed, verifying the correct patient and procedure. The patient's procedural site was prepped and draped in the usual fashion. Local anesthetic was given subcutaneously to right groin region with Lidocaine 2%. Using a modified Seldinger technique, arterial access was obtained via the right femoral artery, a 5 Fr sheath was inserted. Left Coronary Artery selective angiography was performed in multiple views u sing a 5 Fr. JL4 catheter. Right Coronary Artery selective angiography was then performed in multiple views using a 5 Fr. 3DRC (Anirudh) catheter. Left Ventriculography was performed in YEE projection using a 5 Fr. Pigtail catheter. LV to AO pullback pressures were then recorded.Contrast was injected through the sheath and the Right Iliac and Femoral artery were assessed for possible closure device.T he arterial sheath was pulled and a Mynx closure device was deployed for hemostasis CORONARY ANGIOGRAPHY DOMINANCE: Right Dominant LEFT HEART ASSESSMENT Left Ventricular Ejection Fraction: by LV Gram 55 % Normal Left Ventricular systolic function LEFT MAIN: Angiographically normal LEFT ANTERIOR DECENDING ARTERY: Mild luminal irregularities CIRCUMFLEX ARTERY: Mild luminal irregularities OM 1: Proximal - Mild luminal irregularities less than 30% RIGHT CORONARY ARTERY: MID RCA: Moderate luminal irregularities up to 50% COMPLICATIONS No Complications PROCEDURE MEDICATIONS Versed 1 mg IV Fentanyl 25 mcg IV Oxygen: 2 L/min via nasal cannula SUMMARY OF HEMODYNAMIC DATA Time AIR REST ECG 15:27:06 AO 79/45 (59) SA 15:42:18 LV 97/13, 24 15:51:01 LV 90/15, 25 15:51:07 LV 121/7, 30 15:52:29 LVp 113/1, 30 15:52:35 AO 126/64 (88) 15:52:40 Signed By Neptali Molina MD On 03/28/2018 16:11:03 Neptali Molina MD
== END 2018-03-28 19:20 | disposition home or self-care (01) ==
LOC: ED 02:59 → PCU 04:13
PROVIDERS: Admitting Provider Hospitalist; Emergency Provider Emergency Medicine; Visit Provider Internal Medicine
DX: I25.110 Atherosclerotic heart disease of native coronary artery with unstable angina pectoris (principal); J44.9 Chronic obstructive pulmonary disease, unspecified; Z23 Encounter for immunization; F17.210 Nicotine dependence, cigarettes, uncomplicated; K86.89 Other specified diseases of pancreas; I95.9 Hypotension, unspecified
CPT/HCPCS: 36415; 71046; 71275; 80048; 80061; 83690; 83735; 84484; 85025; 93005; 93306; 93458; 94640; 96361; 96374; 96375; 97161; 97165; 99152; 99153; 99218; 99285; 99406; C1760; J7030; Q9967; 90686; A4216; C1769; G0378; J2405

== ENCOUNTER 2019-07-26 21:54 | Observation (INO) | payer MEDICARE, SELFPAY ==
[2019-07-26 21:55] VITALS: BP 159/88; PULSE 85; RESP 16; TEMP 36.6; O2SAT 98; BMI 21.7
--- NOTE | 2019-07-26 21:57 | NURSING ---
PULLED OLD STEVIE FOR
--- NOTE | 2019-07-26 22:13 | EKG12_ITS ---
Test Reason : CP Blood Pressure : / mmHG Vent. Rate : 075 BPM Atrial Rate : 075 BPM P-R Int : 144 ms QRS Dur : 080 ms QT Int : 382 ms P-R-T Axes : 072 053 059 degrees QTc Int : 426 ms Normal sinus rhythm Normal ECG Confirmed by ABNER BRADLEY, JOY ([id number]), supervising editor news reel LUCAS TUBBS ([id number]) on 07/28/2019 8:18:25 AM Referred By: ARCHANA Confirmed By:JOY LEVINE MD
--- NOTE | 2019-07-26 22:14 | ED.VIS.GEN ---
History of Present Illness Chief Complaint: Chest Pain Informant: Patient Narrative: 64-year-old female presents with chest pain. She states about an hour prior to her examination she was sitting. She began to feel that her heart was pounding and racing. She went took her blood pressures about 114/80 with a heart rate of 84. She reports the sensation lasted 30 minutes. However she continues to feel some left arm pain nausea and feels sweaty. She is a pack-a-day smoker. Patient had a heart catheterization in March 2018 that showed mild nonobstructive coronary artery disease. Noted that the OM1 proximal showed mild luminal irregularities less than 30%. The mid RCA with moderate luminal irregularities up to 50%. Ejection fraction 55%. Patient states she is not treated for any medical problems. She had been otherwise been feeling well up until this episode. He states she has felt similar symptoms like this in the past but not to this extent. Past Medical History - Allergies and Home Meds Allergies/Adverse Reactions: Allergies No Known Allergies Allergy (Verified 07/26/19 22:00) Primary Care Physician: Didier Nagel MD [Primary Care Provider] - Surgical History: no surgical history Smoking Status: Current every day smoker - Family History Maternal Family History: Reports: - - Patient was adopted and she does not know her family history. Paternal Family History: Reports: - - Patient was adopted and she does not know her family history. Review of Systems General: Denies: Chills, Fever, Sweats Eyes: Denies: Visual changes - bilaterally, Diplopia ENT: Denies: Rhinorrhea, Sore throat Cardiovascular: Reports: Chest pain, Palpitations, Heart racing Respiratory: Denies: Dyspnea, Cough, Dyspnea on exertion Gastrointestinal: Reports: Nausea. Denies: Abdominal pain, Vomiting, Diarrhea, Melena, Hematochezia Genitourinary: Denies: Dysuria, Hematuria, Frequency Musculoskeletal: Denies: Back pain, Extremity Pain Skin: Denies: Rash, Wounds Neurological: Denies: Headache, Weakness, Numbness Physical Exam Vital Signs/Narrative: Vital Signs Temp Pulse Resp BP Pulse Ox 07/26/19 21:55 97.9 F 85 16 159/88 H 98 Inital Vital Signs reviewed: Yes General: Well nourished, Well developed, No Acute Distress Head: Normocephalic, Atraumatic Eyes: Perrl, EOMI ENT: Moist mucous membranes, No rhinorrhea Neck: Supple, Nontender Cardiovascular: Regular rate, Regular rhythm, No murmurs Respiratory: No distress, CTA bilaterally, Chest nontender Abdomen: Soft, Nontender, Nondistended, Normal bowel sounds Back: Nontender, Normal Inspection Extremities: Nontender, No edema Skin: Normal color, No rash Neurological: Alert, Oriented x3, Cranial nerves II-XII grossly intact, Normal Strength, Normal Sensation Psychological: Normal affect, Normal Mood Diagnostic/Tx/Re-eval - Rhythm Strip Rhythm Strip: Sinus Rhythm Rate: 75 - No significant changes when compared to March 2018. Ectopy: None - Medical Decision Making Blood work essentially negative except for an elevated d-dimer. CTA of the chest was negative for dissection or embolism. Patient is doing well on repeat examination. Her heart score is 4 PAOLA score is 1. She is not established with a PCP at the current time and therefore I cannot ensure early follow-up. I think is very reasonable to bring her in cycle enzymes and discuss stress testing. Hospitalist will be contacted. ED Disposition - Plan for ED Patient: Disposition: Acute Care Hospital [facility] Diagnosis: Chest pain Referrals: Didier Nagel MD [Primary Care Provider] -
--- NOTE | 2019-07-26 22:20 | RAD_ITS ---
STUDY: X-RAY CHEST REASON FOR EXAM: Female, 64 years old. CHEST PAIN TECHNIQUE: PA and lateral chest. COMPARISON: 03/28/2018. FINDINGS: The lungs are clear and expanded. There is no demonstrated pleural abnormality. Normal size heart. Normal mediastinum and matteo. Normal visualized pulmonary arteries. Normal visualized aortic arch and descending thoracic aorta. Normal visualized thoracic spine. Normal visualized ribs, clavicles, and shoulders. There is no demonstrated abnormality of the visualized soft tissue structures of the upper abdomen. RAD/Chest PA and Lateral IMPRESSION: Normal x-ray examination of the chest. Electronically Signed: Ayaka Latif MD at 23:04 EST Tel , Service support ,
[2019-07-26 22:22] LABS: Absolute Lymphocyte Count 4.39 X10^3/uL (0.83-4.51); Absolute Neutrophil Count 4.5 X10^3/uL (2.0-7.7); Basophil# 0.06 X10^3/uL; Basophil% 0.6 % (0-1); Hematocrit 45.1 % (37-47); Hemoglobin 14.5 g/dL (12.0-15.0); Lymphocyte # 4.39 X10^3/ul (4.0); Lymphocyte % 43.9 % (19-41); Mean Corp Hgb Conc 32.2 g/dL (32-36); Mean Corpuscular Hgb 30.2 pg (27.0-32.0); Mean Platelet Vol. 9.8 fl (6.2-12.0); Monocyte# 0.79 X10^3/uL; Monocyte% 7.9 % (0-10); NRBC Flagged by Analyzer 0 % (0-5); Neutrophil # 4.54 X10^3/uL (2.7-7.7); Neutrophil % 45.4 % (47-70); Platelet Count 332 K/mm3 (150-450); RBC Distribution Width CV 12.9 % (11.6-14.6); RBC Distribution Width SD 44.9 fl (35.1-43.9)
[2019-07-26] MEDS: Ondansetron 4 MG/2 ML Vial IV (22:40)
[2019-07-26] MEDS: Aspirin 81 MG TAB.CHEW 324 MG PO (22:40)
[2019-07-26 22:42] LABS: Anion Gap 6 (5-15); BUN 16 mg/dL (7-18); BUN/Creat Ratio 21.9 RATIO (10-20); Calcium,Total 9.2 mg/dL (8.5-10.1); Chloride 103 mmol/L (98-107); Creatinine, Serum 0.73 mg/dL (0.55-1.02); EST Glomerular Filtration Rate 85 mL/min (>60); Est Glom Filt Rate - Afr Amer 103 mL/min (>60); Estimated Creatinine Clearance 57.98 ml/min; Glucose 90 mg/dL (74-106); Potassium 3.6 mmol/L (3.5-5.1); Sodium Level 139 mmol/L (136-145)
[2019-07-26 22:45] LABS: D-Dimer Quantitative (DVT/PE) 1.47 FEU/ug/m (0.27-0.49)
[2019-07-26 23:00] VITALS: BP 120/76; PULSE 60; RESP 13; O2SAT 96
--- NOTE | 2019-07-26 23:07 | CT_ITS ---
STUDY: CTA CHEST REASON FOR EXAM: Female, 64 years old. LT MID CP/DIAPHORESIS. Hx of COPD and HLD RADIATION DOSAGE (If Supplied By Facility): CTDIvol = ( 4.48 ) mGy, DLP = ( 157.63 ) mGycm TECHNIQUE: The examination was performed with the intravenous administration of Isovue 370 75ml. Post-processing of the angiographic images was performed, with multiplanar reformation and 3D reconstruction. Individualized dose optimization techniques were used for this CT. COMPARISON: 03/28/2018. FINDINGS: The heart and pericardium are normal. The aorta is normal in caliber, with no aneurysm or dissection. There is no mediastinal mass or adenopathy. There is no hilar or axillary adenopathy. There is no evidence of pulmonary embolus. There is no pleural effusion. There is no pulmonary consolidation. Mild centrilobular emphysema. Pancreatic calcifications consistent with chronic pancreatitis. Visualized abdomen is otherwise unremarkable. There is no osseous abnormality. CT/CTA Chest W/WO Contrast IMPRESSION: 1. No pulmonary embolus or aortic dissection. 2. COPD. 3. Chronic pancreatitis. Electronically Signed: Ayaka Latif MD at 23:53 EST Tel , Service support ,
[2019-07-26 23:50] VITALS: BP 96/55; PULSE 64; RESP 18; O2SAT 88
[2019-07-26 23:58] VITALS: RESP 18; O2SAT 95
[2019-07-27] VITALS (9 sets, daily range): BP systolic 82–122; BP diastolic 46–66; PULSE 59–74; RESP 14–18; TEMP 36.4–36.6; O2SAT 92–98; BMI 22.1; BMI 22.2
[2019-07-27] MEDS: Ketorolac 15 MG/ML Vial IV (00:42)
--- NOTE | 2019-07-27 01:10 | PCM.HP.STD ---
Problem List (1) Chest pain Status: Acute Qualifiers: Chest pain type: precordial pain Qualified Code(s): R07.2 - Precordial pain History of Present Illness Date of Admission: 07/27/19 Chief Complaint: Chest pain The patient is a 64 year old F who was seen in the emergency room at [facility] with a chief complaint of precordial chest pain which started at 9 PM on 07/26/2019. Patient was at rest when the pain began, she had a feeling of palpitations also, she also had pain going down her left arm. Patient stated the pain was dull in nature and was centered in the middle of her chest. Patient had no complaints of any shortness of breath. Patient told this examiner that her chest pain has not gone away since she has been in the emergency room, she now rates the chest pain is a 5 out of a maximal of 10 in intensity. Patient had a cardiac catheterization performed in 2018 which showed nonocclusive coronary artery disease, she has not followed up with a ice carver since that time. Work-up in the emergency room included a chest x-ray which showed evidence of hyperinflation. Patient's labs were unremarkable except for an elevated d-dimer at 1.47, patient's EKG showed normal sinus rhythm without evidence of ischemic changes. CTA of the chest was performed which showed no evidence of pulmonary embolus. Patient will be placed in observation status on PCU, if enzymes remain negative she will undergo an exercise nuclear stress test tomorrow. Final note: On my examination in the emergency room, patient had chest tenderness on palpation which she stated was similar to her chest pain that she is complaining about. Past Medical History Past Medical History (Chronic Problems): Chronic Problems (Last Updated 03/28/18 @ 05:42 by Oscar Clark MD) COPD (chronic obstructive pulmonary disease) (Chronic) Medical History: Medical History (Last Updated 03/28/18 @ 05:42 by Oscar Clark MD) COPD (chronic obstructive pulmonary disease) J44.9 Allergies No Known Allergies Allergy (Verified 07/26/19 22:00) Home Medications: Ambulatory Orders Medication Instructions Recorded Albuterol Inhaler [Ventolin Hfa] 2 puff INHALATION Q4H PRN PRN #1 03/28/18 inhaler Aspirin E.C. [Ecotrin] 81 mg PO DAILY@0800 #30 tab 03/28/18 Atorvastatin Calcium [Lipitor] 20 mg PO QHS #30 tab 03/28/18 Budesonide/Formoterol 80-4.5 2 puff INHALATION BID #1 inhaler 03/28/18 [Symbicort 80-4.5 Mcg Inhaler] Surgical History: noncontributory Psychiatric History: No pertinent psych hx [employer]ING [employer] History: No pertinent [employer] TR[employer] history Lives: Spouse/ Significant Other Smoking Status: Current every day smoker Tobacco Use: Cigarettes Alcohol: Occasional Drugs: None - *Family History Maternal History Items: - - Patient was adopted and she does not know her family history. Paternal History Items: - - Patient was adopted and she does not know her family history. Review of Systems Constitutional: Denies: Anorexia, Chills, Fever, Night Sweats, Malaise, Weakness, Weight Change, Fatigue Eyes: Denies: Cataracts, Conjunctivae Inflammation, Double vision, Drainage HEENT: Denies: Dysphasia, Ear Pain, Eye Pain, Hearing Changes, Nasal bleeding, Nasal Congestion, Post Nasal Drip Cardiovascular: Reports: Chest Pain. Denies: Claudication, Chest Pressure, Chest Tightness, Edema, Orthopnea, Palpitations, Paroxysmal Noc. Dyspnea Respiratory: Denies: Cough, Hemoptysis, Pleuritic Pain, Shortness of Breath, Shortness of breath at rest, Shortness of breath upon exertion, Sputum production, Wheezing Gastrointestinal: Denies: Abdominal Pain, Constipation, Diarrhea, Hematemesis, Hematochezia, Nausea, Melena, Vomiting Genitourinary: Denies: Dysuria, Frequency, Hematuria, Hesitancy, Urgency Gynecological: Denies: Breast symptoms Musculoskeletal: Denies: Back Pain, Foot Pain, Hand Pain, Joint Pain, Joint stiffness, Joint swelling, Joint Tenderness, Leg Pain Skin: Denies: Dryness, Pruritis, Rash Neurological: Denies: Balance problems, Blurred vision, Double vision, Slurred speech, Difficulty swallowing, Focal weakness, Headaches, Incoordination, Numbness, Tingling Psychiatric: Denies: Anxiety, Depression, Homicidal Ideations, Suicidal Ideations Endocrine: Denies: Change in Body Habitus, Heat/ Cold Intolerance, Polydipsia, Polyuria Hematologic/ Lymphatic: Denies: Adenopathy, Anemia, Easy Bruising, Easy Bleeding, Petechiae, Purpura VTE Information - Inpt Only VTE Present on Admission: No VTE Mechan Device Prophylaxis: None VTE Pharm Prophylaxis ordered?: Yes Patient Problems: Active and Suspected Problems (Last Updated 03/28/18 @ 05:42 by Oscar Clark MD) Chest pain (Acute) - Physical Exam Vitals/I&O's: Vital Signs Temp Pulse Resp BP Pulse Ox 97.9 F 64 18 96/55 L 95 07/26/19 21:55 07/26/19 23:50 07/26/19 23:58 07/26/19 23:50 07/26/19 23:58 Oxygen Flow Rate (L/min) 2 Oxygen Delivery Method Nasal Cannula Weight: 52.3 kg Body Mass Index (BMI) 21.7 General: Alert, Oriented x3, Cooperative, No apparent distress, Well developed HEENT: Atraumatic, PERRLA, EOMI, Normocephalic Oral: Moist Mucosa Neck: Supple, No JVD, Negative Carotid Bruits, Trachea Midline, Thyroid Normal Size and Texture Lungs: Clear to auscultation, Normal air movement, No wheeze, No rales, Rhonchi - Scattered expiratory rhonchi were noted bilaterally which cleared on deep cough Cardiovascular: Regular rate, Regular Rhythm, Normal S1, Normal S2, No murmurs, PMI Normal, No rub noted, No Gallop Abdomen: Bowel Sounds Present, Soft, Non Tender, Non-Distended, No hernias noted Extremities: No clubbing, No cyanosis, No edema, Capillary Refill Less than 3 Seconds Skin: No rashes, No breakdown Musculoskeletal: Tenderness - There is tenderness to palpation of the chest wall across the mid chest wall Neurological: Cranial nerves II-XII grossly intact, Neuro grossly intact, Sensory exam intact to light touch and pain, Coordination normal Psych/Mental Status: Normal Affect, Appropriate, Alert and oriented to time, place, person, mood and affect Laboratory Results 07/26/19 21:58: WBC 10.0, RBC 4.80, Hgb 14.5, Hct 45.1, MCV 94.0, MCH 30.2, MCHC 32.2, RDW Std Deviation 44.9 H, RDW Coeff of [place]iff[place] 12.9, Plt Count 332, MPV 9.8, Immature Gran % (Auto) 0.200, Neut % (Auto) 45.4 L, Lymph % (Auto) 43.9 H, [place] % (Auto) 7.9, Eos % (Auto) 2.0, Baso % (Auto) 0.6, Absolute Neuts (auto) 4.5, Absolute Lymphs (auto) 4.39, Nucleated RBC % 0 07/26/19 21:58: Sodium 139, Potassium 3.6, Chloride 103, Carbon Dioxide 30.0, Anion Gap 6, BUN 16, Creatinine 0.73, Estim Creat Clear Calc 57.98, Est GFR (MDRD) Af Amer 103, Est GFR (MDRD) Non-Af 85, BUN/Creatinine Ratio 21.9 H, Glucose 90, Calcium 9.2, Troponin I < 0.015 07/26/19 21:58: D-Dimer Quant (PE/DVT) Cancelled 07/26/19 22:25: D-Dimer Quant (PE/DVT) 1.47 H* Assessment/Plan All Active Problems (Last Updated 03/28/18 @ 05:42 by Oscar Clark MD) Unstable angina pectoris (Ruled-out) Chest pain (Acute) #1 chest pain-etiology unclear, some of the patient's chest discomfort is reproducible on palpation of the chest wall-patient is at high risk however for a non-STEMI due to her history of nonobstructive coronary disease along with her continued smoking. Patient was placed in observation status on PCU, enzymes will be cycled, if they remain negative patient will undergo an exercise nuclear stress test today. #2 chronic obstructive pulmonary disease #3 hyperlipidemia-patient currently is on Lipitor at home Code Visit OBSV E&M: 41054 Initial observation care L3
--- NOTE | 2019-07-27 02:16 | EKG12_ITS ---
Test Reason : CP ADMIT Blood Pressure : / mmHG Vent. Rate : 058 BPM Atrial Rate : 058 BPM P-R Int : 160 ms QRS Dur : 080 ms QT Int : 426 ms P-R-T Axes : 074 068 067 degrees QTc Int : 418 ms Sinus bradycardia Otherwise normal ECG When compared with ECG of 28-MAR-2018 09:47, No significant change was found Confirmed by ABNER BRADLEY, JOY ([id number]), editorial specialist NELI YANG ([id number]) on 07/28/2019 11:01:11 AM Referred By: DR CHISHOLM Confirmed By:JOY LEVINE MD
[2019-07-27] MEDS: Aspirin E.C. 81 MG Tablet PO (06:23)
[2019-07-27] MEDS: Ipratropium/Albuterol Sulfate 3 ML AMPUL.NEB INHALATION (08:38)
--- NOTE | 2019-07-27 11:42 | PCM.DC ---
- Discharge Diagnoses Current Active Problems: Current Active and Chronic Problems (Last Updated 03/28/18 @ 05:42 by Oscar Clark MD) Chest pain (Acute) You will use the following diet at home:: Cardiac Discharge Activity: Return to Normal Activity Call your doctor if you observe: Shortness of breath, Dizziness, Fainting spells, Chest pain Allergies/Adverse Reactions: Allergies No Known Allergies Allergy (Verified 07/26/19 22:00) Medications to take at Discharge Aspirin E.C. [Ecotrin] 81 mg PO DAILY@0800 #30 tab 03/28/18 Atorvastatin Calcium [Lipitor] 20 mg PO QHS #30 tab 03/28/18 Albuterol Inhaler [Ventolin Hfa] 2 puff INHALATION Q4H PRN PRN #1 inhaler 07/27/19 The following prescriptions were given: Albuterol Inhaler [Ventolin Hfa] 2 puff INHALATION Q4H PRN PRN #1 inhaler PRN Reason: Wheezing Transmission Status: Pending to [facility]/pharmacy #[id number] Primary Care Physician: Didier Nagel MD [Primary Care Provider] - Please follow up with your Primary Care Physician in: 1 Week Test Results: Test results from this visit will be discussed in further detail at your follow-up appointment, if applicable. Proposed Discharge Date: 07/27/19
--- NOTE | 2019-07-27 12:11 | PHA.DC.MR ---
Pharmacy Service has performed discharge medication reconciliation for this patient. Home Medications Albuterol Inhaler [Ventolin Hfa] 2 puff INHALATION Q4H PRN PRN #1 inhaler 03/28/18 Aspirin E.C. [Ecotrin] 81 mg PO DAILY@0800 #30 tab 03/28/18 Atorvastatin Calcium [Lipitor] 20 mg PO QHS #30 tab 03/28/18 The patient's discharge medication list was reviewed for discrepancies and discrepancies were resolved.
--- NOTE | 2019-07-27 12:30 | PCM.DC.SUM ---
<Jenni Padilla - Last Filed: 07/27/19 12:38> Discharge Date and Diagnosis Date of Admission: 07/27/19 Date of Discharge: 07/27/19 - Primary Discharge Diagnosis Active and Suspected Problems (Last Updated 03/28/18 @ 05:42 by Oscar Clark MD) 1. Chest pain, ACS ruled out 2. Hypotension 3. Hyperlipidemia 4. Chronic COPD - Secondary Discharge Diagnosis Chronic Problems (Last Updated 03/28/18 @ 05:42 by Osacr Clark MD) COPD (chronic obstructive pulmonary disease) (Chronic) Hospital Course and Treatment Imaging Results: Diagnostic Data Chest X-Ray 07/26/19 22:20 IMPRESSION: Normal x-ray examination of the chest. Electronically Signed: Ayaka Latif MD at 23:04 EST Tel , Service support , Chest CTA 07/26/19 23:07 IMPRESSION: 1. No pulmonary embolus or aortic dissection. 2. COPD. 3. Chronic pancreatitis. Electronically Signed: Ayaka Latif MD at 23:53 EST Tel , Service support , Operations: None Procedures: Stress test Summary of Care Provided: The patient is a 64 year old F admitted 07/27/19 due to chest pain. 1. Chest pain, ACS ruled out- Patient reports approximately 1 minute of palpitations where she became diaphoretic and had pain down her left shoulder. Troponin negative. CTA ruled out PE. Stress test report pending however reported to be negative for ischemia per cardiology. 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 Continue aspirin, statin. No arrhythmias noted on telemetry. Discussed with patient if she has recurrent palpitations she may need to undergo Holter monitor as outpatient for further assessment. Follow-up with primary care provider in 1 week. 2. Hypotension- patient reports BP is low at baseline. Fluid bolus given, repeat prior to DC. 3. Hyperlipidemia- continue statin. 4. Chronic COPD-continue as needed albuterol inhaler. Patient seen and examined prior to discharge. Physical assessment as noted below. Patient is stable for discharge with follow up recommendations as noted above. This patient was seen by ELLEN Brush under the supervision of Dr. Rodriguez. - Physical Exam Vitals/I&O's: Vital Signs Temp Pulse Resp BP Pulse Ox 97.9 F 59 L 16 87/54 L 96 07/27/19 12:06 07/27/19 12:06 07/27/19 12:06 07/27/19 12:06 07/27/19 12:06 Oxygen Flow Rate (L/min) 2 Oxygen Delivery Method Room Air Weight: 113 lb 12.136 oz Body Mass Index (BMI) 22.1 Intake and Output for Last 24 Hours 07/25/19 07/26/19 07/27/19 23:59 23:59 23:59 Intake Total 927 / 927 Balance 927 / 927 General: Alert, Oriented x3, Cooperative HEENT: Atraumatic, PERRLA, EOMI, Normocephalic Neck: Supple, No JVD, Negative Carotid Bruits Lungs: Clear to auscultation, Diminished Cardiovascular: Regular rate, Regular Rhythm, Normal S1, Normal S2, No murmurs Abdomen: Bowel Sounds Present, Soft, Non Tender, Non-Distended Extremities: No clubbing, No cyanosis, No edema, Capillary Refill Less than 3 Seconds Skin: No rashes, No breakdown Musculoskeletal: No Tenderness to Palpation of Joints or Extremities Neurological: Cranial nerves II-XII grossly intact, Neuro grossly intact Psych/Mental Status: Normal Affect, Appropriate Laboratory Results 07/26/19 21:58: WBC 10.0, RBC 4.80, Hgb 14.5, Hct 45.1, MCV 94.0, MCH 30.2, MCHC 32.2, RDW Std Deviation 44.9 H, RDW Coeff of Tiffanie 12.9, Plt Count 332, MPV 9.8, Immature Gran % (Auto) 0.200, Neut % (Auto) 45.4 L, Lymph % (Auto) 43.9 H, Bladen % (Auto) 7.9, Eos % (Auto) 2.0, Baso % (Auto) 0.6, Absolute Neuts (auto) 4.5, Absolute Lymphs (auto) 4.39, Nucleated RBC % 0 07/26/19 21:58: Sodium 139, Potassium 3.6, Chloride 103, Carbon Dioxide 30.0, Anion Gap 6, BUN 16, Creatinine 0.73, Estim Creat Clear Calc 57.98, Est GFR (MDRD) Af Amer 103, Est GFR (MDRD) Non-Af 85, BUN/Creatinine Ratio 21.9 H, Glucose 90, Calcium 9.2, Troponin I < 0.015 07/26/19 21:58: D-Dimer Quant (PE/DVT) Cancelled 07/26/19 22:25: D-Dimer Quant (PE/DVT) 1.47 H* 07/27/19 01:58: Troponin I < 0.015 07/27/19 04:50: Troponin I < 0.015 07/27/19 07:50: Troponin I < 0.015 Current Medications Aspirin (Ecotrin) 81 mg PO DAILY@0800 [facility] Last Admin: 07/27/19 06:23 Dose: 81 mg Documented by: Atorvastatin Calcium (Lipitor) 20 mg PO QHS [facility] Heparin Sodium (Porcine) (Heparin Na) 5,000 unit SC Q12 [facility] Last Admin: 07/27/19 09:03 Dose: Not Given Documented by: Sodium Chloride () 250 mls @ 15 mls/hr IV .[id number] PRN PRN Reason: Saline Flush Sodium Chloride () 250 mls @ 15 mls/hr IV .[id number] PRN PRN Reason: Additional IVPB Infusion Sodium Chloride () 500 mls @ 999 mls/hr IV .Q31M ONE Stop: 07/27/19 12:49 Morphine Sulfate () 4 mg IV Q3H PRN PRN PRN Reason: Pain Score 6-10/10 Ondansetron HCl (Zofran) 4 mg IV Q8H PRN PRN PRN Reason: NAUSEA/VOMITING Sodium Chloride () 10 - 40 ml IV UD PRN PRN Reason: SALINE FLUSH Discharge Diet: Low fat/ Low Cholesterol Discharge Activity: Return to Normal Activity Call your doctor if you observe: Shortness of breath, Dizziness, Fainting spells, Chest pain Home Medications: Medications to take at Discharge Aspirin E.C. [Ecotrin] 81 mg PO DAILY@0800 #30 tab 03/28/18 Atorvastatin Calcium [Lipitor] 20 mg PO QHS #30 tab 03/28/18 Albuterol Inhaler [Ventolin Hfa] 2 puff INHALATION Q4H PRN PRN #1 inhaler 07/27/19 Following Prescrptions Were Given to Patient: Albuterol Inhaler [Ventolin Hfa] 2 puff INHALATION Q4H PRN PRN #1 inhaler PRN Reason: Wheezing Transmission Status: Received by [id number] Primary Care Physician: Didier Nagel MD [Primary Care Provider] - Please follow up with your Primary Care Physician in: 1 Week Disposition: Home Minutes spent on discharge:: 35 Patient Condition:: Stable Medical Necessity - Tobacco Use Smoking Status: Current every day smoker Tobacco Use: Cigarettes Meaningful Use Info Meaningful Use Diagnoses (Choose all that apply): None applicable <Philip Rodriguez - Last Filed: 07/27/19 16:19> Discharge Date and Diagnosis - Secondary Discharge Diagnosis Chronic Problems (Last Updated 03/28/18 @ 05:42 by Oscar Clark MD) COPD (chronic obstructive pulmonary disease) (Chronic) Hospital Course and Treatment Operations: None Procedures: Stress test Summary of Care Provided: Patient seen and examined independently. Data reviewed. I agree with the above note by the nurse practitioner. The patient is a 64 year old F presents with chest pain. Chest pain was associated with. Where the patient was having palpitations and then became diaphoretic. Patient underwent a work-up, including CT of the chest as well as stress test. All of which were normal. 2018, patient had a heart catheterization which showed mild obstructive coronary disease. Patient was noted to be hypotensive at 1 point. Orthostatics were performed and were negative. Is my feeling that the patient experienced a near syncopal episode with the palpitations and diaphoresis that led to her symptoms. Patient states that she is normally hypertensive but patient was lowered to the ED's today. Patient did receive IV fluids and blood pressure did improve. [] - Physical Exam Vitals/I&O's: Vital Signs Temp Pulse Resp BP Pulse Ox 36.6 C 64 14 94/46 L 98 07/27/19 13:42 07/27/19 13:42 07/27/19 13:42 07/27/19 13:42 07/27/19 13:42 Oxygen Flow Rate (L/min) 2 Oxygen Delivery Method Room Air Weight: 51.6 kg Body Mass Index (BMI) 22.1 Orthostatic Vital Signs Start: 07/27/19 13:42 Freq: q24h Status: Active Protocol: Activity Type Activity Date Activity User E-Sign Co-Sign Detail Recorded Client Recorded Date Recorded By Document 07/27/19 13:42 [facility] [id number] 07/27/19 13:46 [facility] 07/27/19 13:42 Orthostatic Vitals Standing -Blood Pressure (90/60-120/80 mm Hg) 85/46 L -Extremity Use Right Arm -Pulse Rate (60-100 beats/min) 69 Sitting -Blood Pressure (90/60-120/80 mm Hg) 95/46 L -Extremity Use Right Arm -Pulse Rate (60-100 beats/min) 61 Lying -Blood Pressure (90/60-120/80 mm Hg) 94/46 L -Extremity Use Right Arm -Pulse Rate (60-100 beats/min) 64 Intake and Output for Last 24 Hours 07/25/19 07/26/19 07/27/19 23:59 23:59 23:59 Intake Total 1427 / 1427 Balance 1427 / 1427 General: Alert, Cooperative HEENT: Atraumatic, Normocephalic Neck: No Nodes, Trachea Midline Lungs: Clear to auscultation, Normal air movement, No rhonchi, No wheeze Cardiovascular: Regular rate, Regular Rhythm, Normal S1, Normal S2, No murmurs Abdomen: Bowel Sounds Present, Soft, Non Tender, Non-Distended Laboratory Results 07/26/19 21:58: WBC 10.0, RBC 4.80, Hgb 14.5, Hct 45.1, MCV 94.0, MCH 30.2, MCHC 32.2, RDW Std Deviation 44.9 H, RDW Coeff of Tiffanie 12.9, Plt Count 332, MPV 9.8, Immature Gran % (Auto) 0.200, Neut % (Auto) 45.4 L, Lymph % (Auto) 43.9 H, Bladen % (Auto) 7.9, Eos % (Auto) 2.0, Baso % (Auto) 0.6, Absolute Neuts (auto) 4.5, Absolute Lymphs (auto) 4.39, Nucleated RBC % 0 07/26/19 21:58: Sodium 139, Potassium 3.6, Chloride 103, Carbon Dioxide 30.0, Anion Gap 6, BUN 16, Creatinine 0.73, Estim Creat Clear Calc 57.98, Est GFR (MDRD) Af Amer 103, Est GFR (MDRD) Non-Af 85, BUN/Creatinine Ratio 21.9 H, Glucose 90, Calcium 9.2, Troponin I < 0.015 07/26/19 21:58: D-Dimer Quant (PE/DVT) Cancelled 07/26/19 22:25: D-Dimer Quant (PE/DVT) 1.47 H* 07/27/19 01:58: Troponin I < 0.015 07/27/19 04:50: Troponin I < 0.015 07/27/19 07:50: Troponin I < 0.015 Discharge Diet: Low fat/ Low Cholesterol Discharge Activity: Return to Normal Activity Call your doctor if you observe: Shortness of breath, Fainting spells, Chest pain Disposition: Home Minutes spent on discharge:: 35 Patient Condition:: Stable Medical Necessity - Tobacco Use Tobacco Use: Cigarettes Meaningful Use Info Meaningful Use Diagnoses (Choose all that apply): None applicable Code Visit OBSV E&M: 18530 Observation care discharge
--- NOTE | 2019-07-27 18:10 | STRESSREP ---
Stress Test Report Exercise myocardial perfusion stress test. 64-year-old lady with a history of chest pain. Stress protocol: Resting EKG demonstrates normal sinus rhythm with a rate of 68 bpm normal intervals are noted resting blood pressures 108/62 mmHg. The patient exercised according to the regular Rony protocol for a total duration of 7 minutes. Patient completed 1 minute into stage III of the Rony protocol. The maximum heart rate attained was 133 bpm which was 85% of maximum predicted heart rate the maximum workload was 8.5 metabolic equivalents. The patient maintained sinus rhythm throughout the recording. At rest there were no ST or T wave changes noted to suggest ischemia and at peak exercise upsloping EKG changes were noted with no meet the criteria for ischemia. The resting blood pressure was 108/62 with a peak blood pressure 140/68 mmHg. Myocardial perfusion protocol. 12.0 mCi of technetium 99m sestamibi was injected at rest. Patient exercised according to regular Rony protocol for total duration of 7 minutes. At peak exercise 36.0 mCi of technetium 99m sestamibi was injected stress images were obtained stress and rest images were reconstructed and compared in the short axis vertical long and horizontal long axis. Gated images were also obtained. Perfusion SPECT analysis: Review of the stress images demonstrate normal uptake of tracer noted in all areas of the myocardium the resting images similarly demonstrated normal uptake of tracer noted in all areas of the myocardium. No areas of reversibility are noted suggest ischemia no previous infarct is noted. Gated SPECT analysis: The gated ejection fraction is noted to be 78%. Conclusion: Normal exercise myocardial perfusion stress test at a moderate workload. Good functional aerobic capacity. Preserved ejection fraction..
== END 2019-07-27 11:43 | disposition home or self-care (01) ==
LOC: ED 07-27 00:06 → PCU 07-27 00:32
PROVIDERS: Admitting Provider Internal Medicine; Emergency Provider Emergency Medicine; PCP Family Medicine
DX: R07.89 Other chest pain (principal); E78.5 Hyperlipidemia, unspecified; J44.9 Chronic obstructive pulmonary disease, unspecified; I95.9 Hypotension, unspecified; M79.602 Pain in left arm; I25.10 Atherosclerotic heart disease of native coronary artery without angina pectoris; F17.210 Nicotine dependence, cigarettes, uncomplicated; R00.1 Bradycardia, unspecified; Z79.899 Other long term (current) drug therapy; Z79.82 Long term (current) use of aspirin
CPT/HCPCS: 36415; 71046; 71275; 78452; 80048; 84484; 85025; 85379; 93005; 93017; 94640; 96361; 96374; 96375; 99218; 99285; 99406; A9500; J7040; Q9967; A4216; G0378; J2405

== ENCOUNTER 2020-08-25 08:24 | Outpatient (RCR) | payer MEDICARE, SELFPAY ==
[2019-07-27 01:57] VITALS: BMI 22.1
[2020-08-25] MEDS: COVID-19 VACC, MRNA(PFIZER)/PF 30 MCG/0.3 ML SYRINGE IM (17:52)
[2020-09-15] MEDS: COVID-19 VACC, MRNA(PFIZER)/PF 30 MCG/0.3 ML SYRINGE IM (16:58)
== END 2020-11-29 23:59 ==
LOC: IMMUN 08:24
PROVIDERS: PCP Physician Assistant; Referring Provider Family Medicine; Visit Provider Family Medicine
DX: Z23 Encounter for immunization (principal)
CPT/HCPCS: 0001A; 0002A; 91300

== ENCOUNTER 2024-01-17 00:27 | Inpatient (IN) | payer MEDICARE, SELFPAY ==
[2024-01-17] VITALS (19 sets, daily range): BP systolic 96–161; BP diastolic 54–146; PULSE 75–133; RESP 16–29; TEMP 36.3–37.2; O2SAT 80–100; BMI 18.5; BMI 18.3
--- NOTE | 2024-01-17 01:35 | EKG12_ITS ---
Test Reason : CP Blood Pressure : / mmHG Vent. Rate : 127 BPM Atrial Rate : 127 BPM P-R Int : 136 ms QRS Dur : 060 ms QT Int : 294 ms P-R-T Axes : 083 079 075 degrees QTc Int : 427 ms Sinus tachycardia with Fusion complexes Biatrial enlargement Pulmonary disease pattern Septal infarct , age undetermined Abnormal ECG Confirmed by GOPI BRADLEY, INDY ([id number]), commissioning editor STERLING WALSH ([id number]) on 01/21/2024 2:01:47 PM Referred By: MILAGRO Confirmed By:DARLING NGUYỄN MD
--- NOTE | 2024-01-17 01:35 | CT_ITS ---
INDICATION: abd pain EXAMINATION: CT ABDOMEN AND PELVIS WITH CONTRAST - CT Abdomen And Pelvis W/ Contrast Injection TECHNIQUE: Helically acquired images were obtained of the abdomen and pelvis following IV contrast. A radiation dose optimization technique was used for this scan. IV Contrast dosage and agent: 75 mL [id number] Oral contrast: None. COMPARISON: CTA chest July 26, 2019 FINDINGS: LOWER CHEST: Bilateral anterior lower lung centrilobular and tree-in-bud airspace opacities, becoming more consolidative on the right.. No cardiomegaly or pericardial effusion. LIVER: Homogeneous. No focal mass. GALLBLADDER AND BILIARY TREE: No calcified gallstones. No gallbladder distension or wall edema. No intra- or extrahepatic biliary ductal dilation. PANCREAS: Calcified sequela of chronic pancreatitis SPLEEN: Normal size without focal cystic or solid mass. ADRENAL GLANDS: No nodules. KIDNEYS AND URETERS: Normal renal size and position. No hydronephrosis. PERITONEUM: Trace nonspecific dependent fluid in the pelvis. No free air BOWEL: No evidence of acute appendicitis. No stomach or bowel distension. No focal inflammatory change. LYMPH NODES: No enlarged mesenteric or retroperitoneal lymph nodes. VESSELS: Aorta is non-dilated. URINARY BLADDER: Unremarkable. REPRODUCTIVE ORGANS: No pelvic masses. ABDOMINAL WALL: No discrete abdominal or pelvic wall hernia. BONES: No lytic or blastic abnormality. CT/Abdomen/Pelvis W IV Cont ONLY IMPRESSION: No specific finding to explain patient''s pain. Sequela of chronic pancreatitis. Please note is not exclude superimposed Acute pancreatitis. Mild bilateral anterior lower lung centrilobular tree-in-bud opacities may represent atelectasis and/or mild atypical infection, commonly nontuberculous mycobacterial or fungal. Electronically Signed: Enoch Page MD at 3:49 EDT ,
--- NOTE | 2024-01-17 01:35 | CT_ITS ---
INDICATION: headache EXAMINATION: CT BRAIN - CT Head or Brain W/O Contrast Injection TECHNIQUE: Multiple axial images were obtained of the head without intravenous contrast. A radiation dose optimization technique was used for this scan. IV Contrast dosage and agent: None. COMPARISON: None FINDINGS: BRAIN PARENCHYMA: No intra- or extra-axial hemorrhage. No evidence of acute infarct. No intracranial mass or mass effect. Unremarkable white matter for age. There is preservation of the madera/white matter interface. Posterior fossa structures are unremarkable. Mild carotid atherosclerosis. CSF SPACES: Cerebral volume appropriate for age. No hydrocephalus. Basal cisterns are patent. CALVARIUM, SKULL BASE, PARANASAL SINUSES AND MASTOID AIR CELLS: No acute osseous finding. Paransasal sinuses are clear. Mastoid air cells are clear. ORBITS: Both globes, extraocular muscles, optic nerves and retrobulbar fat appear unremarkable. ASPECTS Score for Acute Strokes: 10 CT/Brain/Head without Contrast IMPRESSION: Negative Brain CT without contrast. Electronically Signed: Enoch Page MD at 3:38 EDT ,
[2024-01-17] MEDS: 0.9% Normal Saline (500mL Bag) 500 ML 999 ML IV (01:51)
[2024-01-17] MEDS: Ondansetron 4 MG/2 ML Vial IV (01:51)
[2024-01-17] MEDS: MethylPREDNISolone 125 MG/2 ML Vial IV (01:51)
[2024-01-17] MEDS: Morphine 4 MG/ML Syringe IV (01:51)
[2024-01-17 02:03] LABS: Absolute Neutrophil Count 13.3 X10^3/uL (2.0-7.7); Basophil# 0.12 X10^3/uL; Basophil% 0.7 % (0-1); Eosinophil# 0.09 X10^3/uL; Eosinophils% 0.5 % (0-5); Hemoglobin 13.9 g/dL (12.0-15.0); Lymphocyte % 7.2 % (19-41); Mean Corp Hgb Conc 32.3 g/dL (32-36); Mean Corpuscular Hgb 30.3 pg (27.0-32.0); Mean Corpuscular Volume 93.9 fL (81-99); Mean Platelet Vol. 9.8 fl (6.2-12.0); Monocyte# 1.85 X10^3/uL; Monocyte% 11.1 % (0-10); NRBC Flagged by Analyzer 0 % (0-5); Neutrophil # 13.31 X10^3/uL (2.7-7.7); Neutrophil % 80.1 % (47-70); POSITIVE DIFFERENTIAL YES; Platelet Count 322 K/mm3 (150-450); RBC Distribution Width CV 12.4 % (11.6-14.6); RBC Distribution Width SD 42.9 fl (35.1-43.9); Red Blood Count 4.58 M/mm3 (4.2-5.4); White Blood Count 16.6 K/mm3 (4.4-11.0)
[2024-01-17 02:13] LABS: Differential Indicated SCAN CRITERIA MET
[2024-01-17 02:20] LABS: AST(SGOT) 15 U/L (15-37); Alanine Aminotransfer ALT/SGPT 15 U/L (13-56); Alkaline Phosphatase 112 U/L (45-117); Anion Gap 7 (5-15); BUN 9 mg/dL (7-18); Bilirubin, Direct 0.24 mg/dL (0.00-0.30); Calcium,Total 9.4 mg/dL (8.5-10.1); Chloride 101 mmol/L (98-107); Creatinine, Serum 0.53 mg/dL (0.55-1.02); EST Glomerular Filtration Rate 122 mL/min (>60); Est Glom Filt Rate - Afr Amer 147 mL/min (>60); Estimated Creatinine Clearance 46.57 ml/min; Glucose 111 mg/dL (74-106); Lipase 12 U/L (13-75); Magnesium 1.8 mg/dL (1.6-2.6); Potassium 3.9 mmol/L (3.5-5.1); Sodium Level 134 mmol/L (136-145)
[2024-01-17 02:39] LABS: Differential Comment SCANNED
--- NOTE | 2024-01-17 03:59 | RAD_ITS ---
INDICATION: cough EXAMINATION/TECHNIQUE: X-RAY - XR Chest 2 Views COMPARISON: July 26, 2019. FINDINGS: LINES/DEVICES: None. LUNGS: Hyperexpanded lungs with coarsened interstitium. No consolidation, edema or effusion. No pneumothorax. MEDIASTINUM AND CARDIOVASCULAR STRUCTURES: Cardiac silhouette not enlarged. Mild aortic atherosclerosis. BONES AND SOFT TISSUES: Unremarkable. RAD/Chest PA and Lateral IMPRESSION: Chronic obstructive pulmonary disease. No radiographic evidence of acute cardiopulmonary disease. Electronically Signed: Enoch Page MD at 5:28 EDT ,
[2024-01-17] MEDS: Ceftriaxone 1 GM/50 ML BAG IV ×2 (04:25→21:02)
--- NOTE | 2024-01-17 04:46 | PCM.HP.STD ---
HPI - General General Date of Admission: 01/17/24 Date of Service: 01/17/24 Chief Complaint: Worsening shortness of breath and headache HPI Narrative DEMETRIO MUSA, is a 68 F who presented to [facility] ED on 01/17/2024 with worsening shortness of breath and headache. Saw patient at bedside in the ED. Patient was sitting up comfortably in bed, conversing normally, in no acute distress. She was breathing comfortably on 3 L nasal cannula with oxygen saturations in the mid to high 90s. Patient does not have formal diagnosis of COPD but was a longtime cigarette smoker. She quit smoking about 1 month ago. She has an appointment to establish with Dr. Radha Wagoner of pulmonology on Friday 01/19. Patient states she recently had all of her lung cancer screening done and she has been working hard to make better choices for her house. She states that over the past few days she has had worsening dyspnea on exertion. Today, she was fairly able to go from her bed to the bathroom without shortness of breath. She also has had a persistent headache over the past few days. Also reports mild intermittent right-sided abdominal pain. She denies any cough or sputum production. Denies any fevers or chills. She has an albuterol inhaler at home that typically helps with any shortness of breath, but she noted that this was the first time that it was not helpful for. For these reasons, she came in to the ED for further evaluation. On arrival here, she was noted to have oxygen saturations in the mid to high 80s on room air, along with sinus tachycardia to the 120s. She was placed on supplemental oxygen and given a breathing treatment with some improvement in her shortness of breath. Labs are notable for WBC count 16, sodium 134, bicarb 26, were otherwise unremarkable. Chest x-ray showed hyperinflated lungs with coarse interstitium consistent with COPD, no other abnormalities. CT on pelvis showed sequelae of chronic pancreatitis as well as mild bilateral anterior lower lung tree-in-bud opacities concerning for atelectasis versus atypical infection. CT brain was unremarkable. [facility] Medical History (Updated 01/17/24 @ 06:[address] Hira Hoover, DO) COPD (chronic obstructive pulmonary disease) Home Medications ?Medication ?Instructions ?Recorded ?Last Taken ?Type aspirin 81 mg tablet,delayed 81 mg PO DAILY@0800 #30 tabs 03/28/18 Unknown Rx release albuterol sulfate 90 mcg/actuation 2 puff inhalation Q4H PRN PRN 07/27/19 Unknown Rx aerosol inhaler Wheezing ##1 Allergy/AdvReac Type Severity Reaction Status Date / Time No Known Allergies Allergy Verified 07/26/19 22:00 Social History Smoking Status: Current every day smoker tobacco type: cigarettes ROS Constitutional Constitutional: Denies chills, fatigue, fever(s) or weakness Cardiovascular Cardiovascular: Reports dyspnea on exertion and rapid heart rate; Denies chest pain, edema, lightheadedness, orthopnea or palpitations Respiratory/Chest Respiratory/Chest: Reports shortness of breath with exertion and wheezing; Denies cough, productive cough or shortness of breath at rest Gastrointestinal Gastrointestinal: Reports abdominal pain; Denies constipation, diarrhea, nausea or vomiting Genitourinary Genitourinary: Denies dysuria Musculoskeletal Musculoskeletal: Denies arthralgias or myalgias Neurologic Neurologic: Denies dizziness, focal weakness or headache(s) Vital Signs Vital Signs Vital Signs: 01/17/24 00:28 01/17/24 00:32 01/17/24 01:15 Temperature 98 F 98.2 F Temperature Source Oral Temporal Pulse Rate 121 H 115 H Respiratory Rate 20 H 26 H Respiratory Effort Short of Breath Respiratory Depth Normal Respiratory Pattern Tachypnea Blood Pressure 161/146 H 103/63 Blood Pressure Mean 151 76 Pulse Ox 92 90 Oxygen Delivery Method Room Air Room Air Room Air Oxygen Flow Rate (L/min) 01/17/24 01:28 01/17/24 01:45 01/17/24 01:45 Temperature Temperature Source Pulse Rate 122 H 133 H 124 H Respiratory Rate 21 H 16 20 H Respiratory Effort Respiratory Depth Respiratory Pattern Blood Pressure 103/63 Blood Pressure Mean 76 Pulse Ox 92 89 95 Oxygen Delivery Method Room Air Room Air Nasal Cannula Oxygen Flow Rate (L/min) 2 01/17/24 01:45 01/17/24 02:00 01/17/24 02:06 Temperature 98.2 F Temperature Source Oral Pulse Rate 122 H 115 H 114 H Respiratory Rate 26 H 24 H 20 H Respiratory Effort Respiratory Depth Respiratory Pattern Blood Pressure 116/78 99/59 L Blood Pressure Mean 91 72 Pulse Ox 95 94 86 Oxygen Delivery Method Nasal Cannula Nasal Cannula Nasal Cannula Oxygen Flow Rate (L/min) 2 2 01/17/24 02:06 01/17/24 03:00 01/17/24 04:00 Temperature 99.0 F Temperature Source Oral Pulse Rate 114 H 111 H 102 H Respiratory Rate 24 H 29 H 18 Respiratory Effort Respiratory Depth Respiratory Pattern Blood Pressure 119/67 110/71 Blood Pressure Mean 84 84 Pulse Ox 93 100 96 Oxygen Delivery Method Nasal Cannula Room Air Nasal Cannula Oxygen Flow Rate (L/min) 3 2 01/17/24 04:35 01/17/24 04:35 Temperature Temperature Source Pulse Rate Respiratory Rate Respiratory Effort Respiratory Depth Respiratory Pattern Blood Pressure Blood Pressure Mean Pulse Ox 80 96 Oxygen Delivery Method Room Air Nasal Cannula Oxygen Flow Rate (L/min) 3 Weight Weight: 44.452 kg Body Mass Index (BMI) 18.5 Physical Exam Const alert, oriented x3 and no apparent distress Constitutional Narrative: Pleasant elderly female, thin and somewhat cachectic appearing, otherwise sitting up comfortably in bed, conversing normally, no acute distress. General Appearance: cooperative and comfortable HEENT normocephalic, head/scalp atraumatic, hearing grossly normal bilaterally and nasal mucous membranes and turbinates normal HEENT Narrative: Dry mucous membranes. Eyes PERRL, EOMs intact bilaterally and conjunctivae normal Neck full ROM Chest inspection of chest normal Resp normal respiratory effort and no use of accessory muscles Resp Narrative: Breathing comfortably on 3 L nasal cannula at rest. Mild wheezing noted in upper airways bilaterally, worse on left. Breath sounds mildly diminished throughout. No crackles noted. Cardio no murmurs and peripheral pulses 2+ throughout Cardio Narrative: Tachycardic, regular rhythm. GI normal to inspection, nondistended, normoactive bowel sounds, soft to palpation, non-tender and non-distended Back/Spine normal ROM Extremity normal to inspection, full ROM and no pedal edema Skin no rashes or lesions noted Neuro moves all extremities and no focal motor deficits Speech: speech normal Psych mental status grossly normal Results Lab / Micro Data 01/17/24 01:54 01/17/24 01:54 Labs: Laboratory Results - last 24 hr 01/17/24 01:54: WBC 16.6 H, RBC 4.58, Hgb 13.9, Hct 43.0, MCV 93.9, MCH 30.3, MCHC 32.3, RDW Std Deviation 42.9, RDW Coeff of Tiffanie 12.4, Plt Count 322, MPV 9.8, Immature Gran % (Auto) 0.400, Neut % (Auto) 80.1 H, Lymph % (Auto) 7.2 L, Hendricks % (Auto) 11.1 H, Eos % (Auto) 0.5, Baso % (Auto) 0.7, Absolute Neuts (auto) 13.3 H, Absolute Lymphs (auto) 1.20, Nucleated RBC % 0, Differential Comment SCANNED, Diff Path Review May foll, Sodium 134 L, Potassium 3.9, Chloride 101, Carbon Dioxide 26.0, Anion Gap 7, BUN 9, Creatinine 0.53 L, Estim Creat Clear Calc 46.57, Est GFR (MDRD) Af Amer 147, Est GFR (MDRD) Non-Af 122, BUN/Creatinine Ratio 17.0, Glucose 111 H, Calcium 9.4, Magnesium 1.8, Total Bilirubin 0.70, Direct Bilirubin 0.24, AST 15, ALT 15, Alkaline Phosphatase 112, Total Protein 7.0, Albumin 3.0 L, Globulin 4.0, Lipase 12 L Micro: Microbiology 01/17/24 01:45 Mucosa - Nose SARS-CoV-2, Influenza & RSV (PCR) - Final Imaging Radiology Impression Abdomen/Pelvis CT 01/17/24 01:35 IMPRESSION: No specific finding to explain patient''s pain. Sequela of chronic pancreatitis. Please note is not exclude superimposed Acute pancreatitis. Mild bilateral anterior lower lung centrilobular tree-in-bud opacities may represent atelectasis and/or mild atypical infection, commonly nontuberculous mycobacterial or fungal. Electronically Signed: Enoch Page MD at 3:49 EDT , Brain CT 01/17/24 01:35 IMPRESSION: Negative Brain CT without contrast. Electronically Signed: Enoch Page MD at 3:38 EDT , Assessment & Plan Assessment/Plan (1) COPD exacerbation: (2) Hypoxia: PLAN: Plan Patient is a 68-year-old female who presented [facility] ED on 01/17/2024 with worsening shortness of breath and headache. 1. COPD exacerbation with hypoxia ? Admit under inpatient status to [facility]. COVID/flu/RSV negative. Respiratory PCR panel and sputum culture ordered. Will treat with IV steroids, IV antibiotics and scheduled DuoNebs for now. Will start budesonide nebulizer twice daily as well. Has outpatient appointment to establish with Dr. Radha Wagoner on Friday 01/19; likely will be stable for discharge prior to then. Wean supplemental oxygen as able. 2. Pulmonary cachexia with suspected malnutrition ? BMI 18 on admit. Nutrition consulted. 3. Sinus tachycardia ? Has had persistent sinus tachycardia to the 100s to 110s since admission. Blood pressure mildly low and patient dry on exam, suspect in part due to volume depletion. Given 500 cc bolus in the ED, will give another liter bolus at this time. Monitor closely. DVT prophylaxis: Lovenox CODE STATUS: Full code, verified Expected disposition: Home, 2 to 3 days Total clinical time spent by myself addressing the patient's medical issues, reviewing all the data, and collaborating with patient's care team: 55 minutes. Charges/Coding Visit Charges Inpatient E&M: 26431 Init Hosp L2
--- NOTE | 2024-01-17 04:47 | EX.ED.DYSGE1 ---
HPI History of Present Illness Chief Complaint: Shortness of Breath Informant: patient Narrative Narrative: Patient is a 68-year-old female with history of COPD who states she quit smoking roughly 1 month ago and reports no need for supplemental oxygen at baseline. She also reports she has chronic pancreatitis. She states that roughly 3 days ago she began with a frontal headache and states that she does not normally have headaches. She states there is no associated trauma prior to the headache beginning. She states she then developed right-sided midepigastric abdominal pain with bouts of nausea and vomiting. She reports after this she felt that if she was to perform minimal physical activities such as walking that her shortness of breath will increase. She states symptoms seem to be slowly progressing over the last few days and secondary to this she comes in for evaluation [facility] Medical History (Updated 01/17/24 @ 06:[address] Giovanni Moncada, DO) COPD (chronic obstructive pulmonary disease) Home Medications ?Medication ?Instructions ?Recorded ?Last Taken ?Type aspirin 81 mg tablet,delayed 81 mg PO DAILY@0800 #30 tabs 03/28/18 Unknown Rx release albuterol sulfate 90 mcg/actuation 2 puff inhalation Q4H PRN PRN 07/27/19 Unknown Rx aerosol inhaler Wheezing ##1 Allergy/AdvReac Type Severity Reaction Status Date / Time No Known Allergies Allergy Verified 07/26/19 22:00 Social History Smoking Status: Former smoker ROS ROS ED Constitutional Constitutional ED: Denies chills or fever(s) Eyes Eyes: Denies change in vision ENT ENT ED: Denies rhinorrhea or sore throat Cardiovascular Cardiovascular: Reports racing heartbeat; Denies chest pain Respiratory/Chest Respiratory/Chest: Reports cough and dyspnea Gastrointestinal Gastrointestinal: Reports abdominal pain; Denies diarrhea, nausea or vomiting Genitourinary Genitourinary ED: Denies dysuria Musculoskeletal Musculoskeletal: Denies myalgias Integumentary Denies rash Neurologic Neurologic: Reports headache(s) Hematologic/Lymphatic Hematologic/Lymphatic: Denies easy bleeding or easy bruising EXAM Physical Exam Const Vital Signs: 01/17/24 00:28 01/17/24 00:32 01/17/24 01:15 Temperature 98 F 98.2 F Temperature Source Oral Temporal Pulse Rate 121 H 115 H Respiratory Rate 20 H 26 H Respiratory Effort Short of Breath Respiratory Depth Normal Respiratory Pattern Tachypnea Blood Pressure 161/146 H 103/63 Blood Pressure Mean 151 76 Pulse Ox 92 90 Oxygen Delivery Method Room Air Room Air Room Air Oxygen Flow Rate (L/min) 01/17/24 01:28 01/17/24 01:45 01/17/24 01:45 Temperature Temperature Source Pulse Rate 122 H 133 H 124 H Respiratory Rate 21 H 16 20 H Respiratory Effort Respiratory Depth Respiratory Pattern Blood Pressure 103/63 Blood Pressure Mean 76 Pulse Ox 92 89 95 Oxygen Delivery Method Room Air Room Air Nasal Cannula Oxygen Flow Rate (L/min) 2 01/17/24 01:45 01/17/24 02:00 01/17/24 02:06 Temperature 98.2 F Temperature Source Oral Pulse Rate 122 H 115 H 114 H Respiratory Rate 26 H 24 H 20 H Respiratory Effort Respiratory Depth Respiratory Pattern Blood Pressure 116/78 99/59 L Blood Pressure Mean 91 72 Pulse Ox 95 94 86 Oxygen Delivery Method Nasal Cannula Nasal Cannula Nasal Cannula Oxygen Flow Rate (L/min) 2 2 01/17/24 02:06 01/17/24 03:00 01/17/24 04:00 Temperature 99.0 F Temperature Source Oral Pulse Rate 114 H 111 H 102 H Respiratory Rate 24 H 29 H 18 Respiratory Effort Respiratory Depth Respiratory Pattern Blood Pressure 119/67 110/71 Blood Pressure Mean 84 84 Pulse Ox 93 100 96 Oxygen Delivery Method Nasal Cannula Room Air Nasal Cannula Oxygen Flow Rate (L/min) 3 2 01/17/24 04:35 01/17/24 04:35 Temperature Temperature Source Pulse Rate Respiratory Rate Respiratory Effort Respiratory Depth Respiratory Pattern Blood Pressure Blood Pressure Mean Pulse Ox 80 96 Oxygen Delivery Method Room Air Nasal Cannula Oxygen Flow Rate (L/min) 3 Positive well nourished and well developed General Appearance ED: well developed; Negative for pallor HEENT Reports moist mucous membranes HEENT Narrative: No tongue or lip swelling no oral lesions no airway edema or compromise No signs of infection noted in the posterior pharynx Patient does have pain with palpation over top the frontal sinuses bilaterally Eyes PERRL and EOMs intact bilaterally General Eye ED: Negative for scleral icterus Neck supple and no JVD Neck Narrative: No nuchal rigidity or meningeal signs noted Chest Wall palpation of chest normal Chest Narrative: No bony deformity or crepitance Resp Resp Narrative: Patient has slight tachypnea and breath sounds are diminished throughout with faint wheezes noted in the bilateral bases on expiration. Cardio regular rhythm Rate: tachycardic and other Other Details: Tachycardic rate with regular rhythm Radial and carotid pulses are equal and symmetric GI non-distended and no masses GI Narrative: Abdomen is soft and nondistended with normal active bowel sounds. There is pain on palpation in the midepigastric right upper and right lower quadrants without voluntary guarding or rigidity. No pulsatile mass Auscultation: normoactive bowel sounds Palpation: soft Extremity normal to inspection Extremity Narrative: No asymmetric edema no pitting edema negative Homans' sign bilaterally Neuro oriented x3, CN's II-XII intact bilaterally and no sensory deficits noted Sensorium / Orientation: alert Motor Exam: strength 5/5 throughout Psych mental status grossly normal Skin no rashes or lesions noted General Skin Exam: Negative for jaundice or pallor MDM MDM MDM Narrative Medical decision making narrative: Patient arrived to the ER hypertensive and tachycardic satting approximately 90% on room air. Patient states that she normally runs around 90 to 92% on room air at baseline. She had multiple symptoms such as headache abdominal pain and dyspnea. Based on this constellation I do have concern for COVID but there is also concern for pneumonia versus congestive heart failure versus COPD exacerbation versus cardiac dysrhythmia versus pancreatitis versus biliary colic or cholecystitis. The patient does not have painful inspiration and denies any recent travel or surgery or history of DVT/PE so did not feel the need for a CTA of the chest. As she does not normally have headaches there is concern that this could be related to an infectious process or even tumor or bleed so a noncontrast CT of the head was performed. This revealed no acute findings. COVID test was negative. CT abdomen and pelvis revealed changes consistent with chronic pancreatitis which patient acknowledges she has. It did show changes to the lower lung field concerning for infection. During the evaluation the patient's oxygen level slowly decreased to the point where she was 81% on room air at rest after returning back from x-ray with no oxygen on board. Therefore this time as imaging shows potentially developing infection she has a leukocytosis concerning for this as well and she is now hypoxic and requires him on oxygen when she does not normally need that at baseline I do not feel that outpatient workup is appropriate. Medicine was contacted secondary to concern for the hypoxia and developing pneumonia and based on the persistent hypoxia and need for supplemental oxygen which she does not have at home they do agree to accept her for further care History & Record Review Discussion w/independent historian: Patient Lab Data Attestation: I reviewed the patient's lab results. Labs: Laboratory Results - last 24 hr 01/17/24 01:54 WBC 16.6 H RBC 4.58 Hgb 13.9 Hct 43.0 MCV 93.9 MCH 30.3 MCHC 32.3 RDW Std Deviation 42.9 RDW Coeff of Tiffanie 12.4 Plt Count 322 MPV 9.8 Immature Gran % (Auto) 0.400 Neut % (Auto) 80.1 H Lymph % (Auto) 7.2 L Tyler % (Auto) 11.1 H Eos % (Auto) 0.5 Baso % (Auto) 0.7 Absolute Neuts (auto) 13.3 H Absolute Lymphs (auto) 1.20 Nucleated RBC % 0 Differential Comment SCANNED Diff Path Review May foll Sodium 134 L Potassium 3.9 Chloride 101 Carbon Dioxide 26.0 Anion Gap 7 BUN 9 Creatinine 0.53 L Estim Creat Clear Calc 46.57 Est GFR (MDRD) Af Amer 147 Est GFR (MDRD) Non-Af 122 BUN/Creatinine Ratio 17.0 Glucose 111 H Calcium 9.4 Magnesium 1.8 Total Bilirubin 0.70 Direct Bilirubin 0.24 AST 15 ALT 15 Alkaline Phosphatase 112 Total Protein 7.0 Albumin 3.0 L Globulin 4.0 Lipase 12 L Radiography Diagnostic Testing: Clinical Impression(s) from Imaging Studies Abdomen/Pelvis CT 01/17/24 01:35 IMPRESSION: No specific finding to explain patient''s pain. Sequela of chronic pancreatitis. Please note is not exclude superimposed Acute pancreatitis. Mild bilateral anterior lower lung centrilobular tree-in-bud opacities may represent atelectasis and/or mild atypical infection, commonly nontuberculous mycobacterial or fungal. Electronically Signed: Enoch Page MD at 3:49 EDT , Brain CT 01/17/24 01:35 IMPRESSION: Negative Brain CT without contrast. Electronically Signed: Enoch Page MD at 3:38 EDT , Chest X-Ray 01/17/24 03:59 IMPRESSION: Chronic obstructive pulmonary disease. No radiographic evidence of acute cardiopulmonary disease. Electronically Signed: Enoch Page MD at 5:28 EDT Reading Location ID and State: [facility] / [place] Tel , Service support , Chest x-ray as interpreted by the emergency medicine physician reveals changes consistent with COPD without acute infiltrate or pneumothorax Discharge Plan Dx/Rx/DC Orders Clinical Impression: COPD exacerbation, Hypoxia, Sinus tachycardia, Chronic pancreatitis Disposition Disposition: Acute Care Hospital [facility] Discharge Date/Time: 01/17/24 05:27
[2024-01-17] MEDS: Azithromycin 500 MG in Dextrose 5%-Water (250mL Bag) 250 ML 250 MG IV ×2 (05:13→22:22)
[2024-01-17] MEDS: Budesonide Respules 0.5 MG/2 ML AMPUL.NEB. INHALATION ×2 (06:56→19:22)
[2024-01-17] MEDS: Ipratropium/Albuterol Sulfate 3 ML AMPUL.NEB INHALATION ×3 (06:57→19:23)
[2024-01-17] MEDS: Lactated Ringers 1,000 ML 250 ML IV (07:00)
--- NOTE | 2024-01-17 07:17 | PN.HOSP_ITS ---
Reason for Visit Reason for Visit: Diagnoses Chronic obstructive pulmonary disease with (acute) exacerbation (01/17/24) Hypoxemia (01/17/24) Subjective Subjective 68-year-old lady admitted with progressive shortness of breath diagnosed with COPD with acute exacerbation Objective Data Objective Data Vital Signs: Vital Signs Temp Pulse Resp BP Pulse Ox O2 Del Method O2 Flow Rate 97.3 F L 112 H 22 H 96/60 96 Nasal Cannula 2 01/17/24 06:09 01/17/24 06:09 01/17/24 06:09 01/17/24 06:09 01/17/24 06:09 01/17/24 06:09 01/17/24 06:09 Oxygen Flow Rate (L/min) 2 Oxygen Delivery Method Nasal Cannula Weight: 44.135 kg Body Mass Index (BMI) 18.3 Intake & Output: Intake and Output for Last 24 Hours 01/15/24 01/16/24 01/17/24 23:59 23:59 23:59 Intake Total 550 / 550 Balance 550 / 550 Lab / Micro Data 01/17/24 01:54 01/17/24 01:54 Labs: Laboratory Results - last 24 hr 01/17/24 01:54: WBC 16.6 H, RBC 4.58, Hgb 13.9, Hct 43.0, MCV 93.9, MCH 30.3, MCHC 32.3, RDW Std Deviation 42.9, RDW Coeff of Tiffanie 12.4, Plt Count 322, MPV 9.8, Immature Gran % (Auto) 0.400, Neut % (Auto) 80.1 H, Lymph % (Auto) 7.2 L, M rhiannon % (Auto) 11.1 H, Eos % (Auto) 0.5, Baso % (Auto) 0.7, Absolute Neuts (auto) 13.3 H, Absolute Lymphs (auto) 1.20, Nucleated RBC % 0, Differential Comment SCANNED, Diff Path Review October, Sodium 134 L, Potassium 3.9, Chloride 101, Carbon Dioxide 26.0, Anion Gap 7, BUN 9, Creatinine 0.53 L, Estim Creat Clear Calc 46.57, Est GFR (MDRD) Af Amer 147, Est GFR (MDRD) Non-Af 122, BUN/Creatinine Ratio 17.0, Glucose 111 H, Calcium 9.4, Magnesium 1.8, Total Bilirubin 0.70, Direct Bilirubin 0.24, AST 15, ALT 15, Alkaline Phosphatase 112, Total Protein 7.0, Albumin 3.0 L, Globulin 4.0, Lipase 12 L Micro: Microbiology 01/17/24 01:45 Mucosa - Nose SARS-CoV-2, Influenza & RSV (PCR) - Final Radiography Diagnostic Testing: Radiology Impression Abdomen/Pelvis CT 01/17/24 01:35 IMPRESSION: No specific finding to explain patient''s pain. Sequela of chronic pancreatitis. Please note is not exclude superimposed Acute pancreatitis. Mild bilateral anterior lower lung centrilobular tree-in-bud opacities may represent atelectasis and/or mild atypical infection, commonly nontuberculous mycobacterial or fungal. Electronically Signed: Enoch Page MD at 3:49 EDT , Brain CT 01/17/24 01:35 IMPRESSION: Negative Brain CT without contrast. Electronically Signed: Enoch Page MD at 3:38 EDT , Chest X-Ray 01/17/24 03:59 IMPRESSION: Chronic obstructive pulmonary disease. No radiographic evidence of acute cardiopulmonary disease. Electronically Signed: Enoch Page MD at 5:28 EDT , Assessment & Plan Assessment/Plan (1) COPD exacerbation: (2) Hypoxia: PLAN: Plan 68-year-old lady admitted with progressive shortness of breath diagnosed with COPD with acute exacerbation 1. COPD with acute exacerbation - Patient started on bronchodilator treatment, systemic steroid as well as antibiotic therapy. Patient placed on oxygen titrated to keep saturation greater than 90. 2. Mild hyponatremia ? Do suspect component of possible SIADH given patient lung condition. Monitoring with daily BMP 3. Low BMI of 18.4 ? Suspected protein calorie malnutrition consultation placed to dietitian 4. Tobacco dependence - Counseled on cessation, offered nicotine patch for tobacco cravings 5. DVT prophylaxis - On enoxaparin Time spent in the patient's overall evaluation,decision-making process, review of diagnostic data, adjustment of management, discussion with other providers, nursing nursing and ancillary staff involved in patient's care documentation, 36 minutes Charges/Coding Visit Charges Inpatient E&M: 82734 Subs Hosp L2
[2024-01-17] MEDS: Aspirin E.C. 81 MG Tablet PO (10:01)
[2024-01-17] MEDS: Enoxaparin 40 MG/0.4 ML Syringe SC (10:01)
--- NOTE | 2024-01-17 10:59 | CASEMGMT ---
MONIKA LANDRY Assessment Face to Face with patient for initial transition planning/care coordination assessment. MONIKA LANDRY introduced self and role at [facility], pt voices understanding. Pt is A&Ox4 and is resting comfortably in bed and is calm. Care providers, pharmacy, and demographics verified. Admitting dx: COPD Exacerbation w/ Hypoxia PCP: Didier Nagel Specialists: Sherry Wagoner (Pulm) Preferred Pharmacy: [facility] Insurance: AARP MCR ADV Prescription Benefit: Yes LNOK: Dilan Matute (Son), Philip Castaneda (SO) Living Arrangements: Pt lives with her SO in a single story home with two steps to enter ADLs/IADLs: Ind Transportation: Self, SO DME: [employer]. Pt is currently requiring additional oxygen. A verbal list of local in-network DME companies provided to the pt at this time. Pt prefers [employer]. HHC/SNF: Denies history or needs Pt?s goal: Home Plan: Home with potential home oxygen. Pt denies the need for HHC, OP Tx, SNF, CCN/ pt link. Pt states that she feels safe returning home with her SO once she is medically ready. CM to follow oxygen requirements in regard to safe DC from [facility]. Sima Mccauley RN, CM
[2024-01-17 11:52] LABS: Pathologist Review Reviewed
[2024-01-17] MEDS: 0.9% Saline Lock 10 ML Syringe IV (21:00)
[2024-01-18] VITALS (9 sets, daily range): BP systolic 89–110; BP diastolic 40–64; PULSE 63–91; RESP 18–20; TEMP 36.6–36.7; O2SAT 82–98
[2024-01-18] MEDS: Ipratropium/Albuterol Sulfate 3 ML AMPUL.NEB INHALATION (04:25)
[2024-01-18 06:09] LABS: Hematocrit 33.8 % (37-47); Mean Corp Hgb Conc 32.5 g/dL (32-36); Mean Corpuscular Hgb 30.7 pg (27.0-32.0); Mean Corpuscular Volume 94.4 fL (81-99); Mean Platelet Vol. 9.7 fl (6.2-12.0); Platelet Count 333 K/mm3 (150-450); RBC Distribution Width CV 12.2 % (11.6-14.6); RBC Distribution Width SD 42.7 fl (35.1-43.9); Red Blood Count 3.58 M/mm3 (4.2-5.4)
[2024-01-18 06:37] LABS: Anion Gap 5 (5-15); BUN 10 mg/dL (7-18); BUN/Creat Ratio 22.7 RATIO (10-20); Chloride 103 mmol/L (98-107); Creatinine, Serum 0.44 mg/dL (0.55-1.02); EST Glomerular Filtration Rate 151 mL/min (>60); Est Glom Filt Rate - Afr Amer 182 mL/min (>60); Estimated Creatinine Clearance 46.24 ml/min; Glucose 144 mg/dL (74-106); Sodium Level 136 mmol/L (136-145)
--- NOTE | 2024-01-18 07:46 | DS.PCM_ITS ---
Providers Date of Admission: 01/17/24 Date of Discharge: 01/18/24 Primary Care Physician: Dr. Didier Nagel MD Reason For Visit: COPD EXACERBATION W/HYPOXIA Diagnosis Discharge Diagnosis (1) COPD exacerbation: Status: Chronic Code(s): J44.1 - Chronic obstructive pulmonary disease with (acute) exacerbation (2) Hypoxia: Status: Acute Code(s): R09.02 - Hypoxemia Plan 68-year-old lady admitted with progressive shortness of breath diagnosed with COPD with acute exacerbation 1. COPD with acute exacerbation - Patient started on bronchodilator treatment, systemic steroid as well as antibiotic therapy. Patient placed on oxygen titrated to keep saturation greater than 90. 2. Mild hyponatremia ? Do suspect component of possible SIADH given patient lung condition. Monitoring with daily BMP 3. Low BMI of 18.4 ? Suspected protein calorie malnutrition consultation placed to dietitian 4. Tobacco dependence - Counseled on cessation, offered nicotine patch for tobacco cravings 5. DVT prophylaxis - On enoxaparin I have reviewed the oxygen testing, and this patient qualifies for the home equipment and portability. The patient is mobile in the home and the community. The patient requires a nebulizer due to COPD and is prescribed to use DuoNeb with the nebulizer. Time spent in the patient's overall evaluation,decision-making process, review of diagnostic data, adjustment of management, discussion with other providers, nursing nursing and ancillary staff involved in patient's care documentation, 36 minutes Medications at Discharge Home Medications aspirin 81 mg tablet,delayed release 81 mg PO DAILY@0800 #30 tabs 03/28/18 albuterol sulfate 90 mcg/actuation aerosol inhaler 2 puff inhalation Q4H PRN PRN Wheezing ##1 07/27/19 azithromycin 500 mg tablet 500 mg PO DAILY 3 days #3 tabs 01/18/24 cefdinir 300 mg capsule 300 mg PO BID #10 caps 01/18/24 guaifenesin 1,200 mg tablet, extended release 12 hr (Mucinex) 1,200 mg PO BID #20 tabs 01/18/24 ipratropium 0.5 mg-albuterol 3 mg (2.5 mg base)/3 mL nebulization soln 3 ml inhalation Q6HWA.RT #180 mL 01/18/24 prednisone 20 mg tablet 20 mg PO BID #14 tabs 07/27/24 Physical Exam Narrative GENERAL: cooperative HEENT: Atraumatic; normocephalic EYES; Anicteric, Normal Conjunctiva NECK; supple, normal thyroid, RESPIRATORY: Diminished to auscultation CARDIOVASCULAR: Regular S1 S2, GI: soft, normoactive bowel sounds, : No Renal angle tenderness; EXTREMITIES: No edema, no clubbing, MUSCULOSKELETAL: no muscle wasting NEURO: Awake; no lateralizing signs. SKIN: No Rash PSYCH; Flat affect Medical Records Data Medical Nutrition Assessment Dietitian: Malnutrition Criteria Met Start: 01/17/24 11:08 Freq: Status: Active Protocol: Document 01/17/24 11:08 SLA (Rec: 01/17/24 11:08 SLA [email or web address]) Nutrition Malnutrition Evidence of Malnutrition Exists Yes Evidenced By Suboptimal Energy Intake ( Severe),Weight Loss (Severe), Physical Changes (Mild) Clinical Problem Chronic Disease or Condition Related Malnutrition Etiology related to increased stress x 7 months and inadequate energy intake Signs/Symptoms as evidenced by ~15% unintended wt loss and pt po intake meeting <75% of estimated nutritional needs x ~ 7mo [employer] Status Active Problem Recommendation Dietitian Recommendations/Changes Continue liberal regular diet Will provide 8 oz chocolate CIB tid w/ meals for increased nutrition if consumed. Weight / BMI Weight Weight: 44.135 kg Body Mass Index (BMI) 18.3 ABG / Lab / Microbiology Data 01/18/24 05:47 01/18/24 05:47 Laboratory: Laboratory Results - last 24 hr 01/17/24 01:54: Diff Path Review Reviewed 01/18/24 05:47: WBC 14.0 H, RBC 3.58 L, Hgb 11.0 L, Hct 33.8 L, MCV 94.4, MCH 30.7, MCHC 32.5, RDW Std Deviation 42.7, RDW Coeff of Tiffanie 12.2, Plt Count 333, MPV 9.7, Sodium 136, Potassium 4.0, Chloride 103, Carbon Dioxide 28.0, Anion Gap 5, BUN 10, Creatinine 0.44 L, Estim Creat Clear Calc 46.24, Est GFR (MDRD) Af Amer 182, Est GFR (MDRD) Non-Af 151, BUN/Creatinine Ratio 22.7 H, Glucose 144 H, Calcium 9.0 Microbiology: Microbiology 01/17/24 06:45 Mucosa - Nasopharyngeal Respiratory Panel (PCR) - Final 01/17/24 01:45 Mucosa - Nose SARS-CoV-2, Influenza & RSV (PCR) - Final D/C Instructions Discharge Diet: No restrictions Discharge Activity: Return to Normal Activity Call your doctor if you observe: Fever of 101 or Higher, Shortness of breath, Fainting spells and Chest pain Meaningful Use Info Meaningful Use Meaningful Use Diagnoses (Choose all that apply): None applicable Ischemic Stroke Statin Dosing Therapy Reference: STATIN DOSE THERAPY REFERENCE: * Patients > 75 years receive moderate or high dose statin therapy. * Patients 75 years or YOUNGER should receive HIGH intensity statin dose unless contraindicated. You will be required to document reason for non-treatment if statin daily dose does not meet guidelines. HIGH DOSE STATIN THERAPY DAILY Atorvastatin > than or = to 40 mg Rosuvastatin > than or = to 20 mg Amlodipine + Atorvastatin > than or = to 2.5/40 mg Ezetimibe + Simvastatin 10/80 mg Simvastatin 80mg Discharge Plan Admission Admit Date/Time: 01/17/24 04:46 Attending Provider: Dilan Wesley Primary Care Provider: Didier Nagel Consulting Providers: Hira Hoover Discharge Orders/Prescriptions Prescriptions: New prednisone 20 mg tablet 20 mg PO BID Qty: 14 0RF cefdinir 300 mg capsule 300 mg PO BID Qty: 10 0RF guaifenesin [Mucinex] 1,200 mg tablet extended release 12hr 1,200 mg PO BID Qty: 20 0RF azithromycin 500 mg tablet 500 mg PO DAILY 3 Days Qty: 3 0RF ipratropium-albuterol 0.5 mg-3 mg(2.5 mg base)/3 mL Solution For Nebulization 3 ml inhalation Q6HWA.RT Qty: 180 0RF Continued aspirin 81 MG tablet 81 mg PO DAILY@0800 Qty: 30 0RF albuterol sulfate 1 INHALER inhaler 2 puff inhalation Q4H PRN PRN (Reason: Wheezing) Qty: 1 0RF Referrals / Follow Up: Didier Nagel MD [Primary Care Provider] - Within 1 Week Disposition Disposition (needs filled in before D/C Order can be placed): Home, Self Care Charges/Coding Visit Charges Inpatient E&M: 12187 Disch Hosp >30min
[2024-01-18] MEDS: Budesonide Respules 0.5 MG/2 ML AMPUL.NEB. INHALATION (08:10)
[2024-01-18] MEDS: Aspirin E.C. 81 MG Tablet PO (08:31)
[2024-01-18] MEDS: Enoxaparin 40 MG/0.4 ML Syringe SC (08:32)
[2024-01-18] MEDS: 0.9% Saline Lock 10 ML Syringe IV (10:05)
--- NOTE | 2024-01-18 12:01 | CASEMGMT ---
Addendum entered by Kate Mccauley 01/18/24 13:54: [facility] returns call at this time and states that they are at the pt's home with the concentrator and the nebulizer and are waiting for the pt to get here. Pt RN updated and plans to DC the pt as soon as possible. PLAN: DC Home with DME (O2 & Nebulizer) Original Note: Per Dr. Wesley, the pt requires a nebulizer at home and the MD signed an Rx for this. The [place] community dietitian faxed the order and O2 testing results to [facility]. The secretary to board of commissioners called the emergent line at [facility]. The [facility] commissary representative states that the delivery truck driver heavy can deliver the concentrator to the home within 45 minutes. However, the delivery truck driver heavy does not have a nebulizer with them to deliver to the home. The delivery truck driver heavy states that he will call the community dietitian back with more information.
--- NOTE | 2024-01-18 12:28 | CASEMGMT ---
Social Work SW asked pt to bring in LW/POA documents as able, pt states will bring them here when she comes in for her follow up appt. CIERRA Bar
--- NOTE | 2024-01-18 13:54 | CASEMGMT ---
MONIKA LANDRY Assessment Face to Face with patient for initial transition planning/care coordination assessment. MONIKA LANDRY introduced self and role at [facility], pt voices understanding. Pt is A&Ox4 and is resting comfortably in bed and is calm. Pt at bedside. Care providers, pharmacy, and demographics verified. Admitting dx: COVID, PNA, FALL PCP: Miah Specialists: Sales Trader through the [place] Preferred [facility]acy: [facility] Insurance: [facility], [facility] A Only, [place] Prescription Benefit: Yes LNOK: Ruma Uribe (W), Nadine Sutton (Lyudmila) Living Arrangements: Pt lives with his and his cousin in a single story home with a ramp to enter ADLs/IADLs: Pt is his caregiver and assists the pt as needed as the pt is W/C bound @ [facility] Transportation: . Denies concerns DME: BP Monitor. CPAP at HS with no additional O2. Pt is currently 97% on RA. W/C. Shower chair. Raised toilet seat. FWW. Adjustable bed. HHC/SNF: Denies Hx of HHC. Pt [facility] Pt?s goal: Home Plan: Home with HHC and family support. Pt states that [facility] Pt and pt deny the need for any acute needs at this time. Pt and pt deny the need for this RN CM to set up HHC for the pt as the [facility]. Pt denies SNF needs at this time. Pt and pt deny further questions or concerns at this time. Sima Mccauley RN, CM
--- NOTE | 2024-01-18 14:47 | NURSING ---
Instructions given on how to use the o2 tank, turning off and on, and informed her not to use in an open flame. verbalized understanding.
== END 2024-01-18 14:45 | disposition home or self-care (01) | DRG 190 ==
LOC: ED 04:38 → MS3 05:10
PROVIDERS: Admitting Provider Hospitalist; Emergency Provider Emergency Medicine; PCP Family Medicine; Visit Provider Internal Medicine
DX: J44.1 Chronic obstructive pulmonary disease with (acute) exacerbation (principal); E43 Unspecified severe protein-calorie malnutrition; E22.2 Syndrome of inappropriate secretion of antidiuretic hormone; Z68.1 Body mass index [BMI] 19.9 or less, adult; Z79.82 Long term (current) use of aspirin; Z87.891 Personal history of nicotine dependence
CPT/HCPCS: 70450; 71046; 74177; 80048; 80076; 83690; 83735; 85025; 85027; 87070; 87205; 87631; 87633; 93005; 94640; 94668; 94762; 97802; 99252; 99284; 99406; J7040; J7050; J7120; Q9967; A4216; G0463; J2405